=== PATIENT | male | born 1950 | race Caucasian/White ===

== ENCOUNTER → 2016-08-25 | Day surgery (SDC) | payer OTHER, MEDICARE ==
--- NOTE | 2016-08-21 11:23 | History & Physical Pre-Op ---
General Information and HPI History of Present Illness: patient presents for evaluation of gallstones. The day after he had acute onset of right upper quadrant abdominal pain. The pain persisted for 10-14 days and then slowly resolved. He has no pain now. His appetite has returned to normal. While he was in pain there was some mild anorexia. No nausea or vomiting. No radiation of pain. ultrasound performed as directed by his primary care physician reveals gallstones with wall thickening. There is no pericholecystic fluid. Common bile duct is normal Allergies/Medications Allergies: Coded Allergies: lithium (UNKNOWN 10/16/15) haloperidol (From HALDOL) (NAUSEA 10/16/15) Home Med list Carbidopa/Levodopa (Carbidopa-Levodopa 25-100 Tab) 25 MG/100 MG TAB 1 TAB PO 4 TIMES/DAY PARKINSONS (Reported) Divalproex Sodium (Depakote ER) [address] 1,500 MG PO BEDTIME MENTAL HEALTH (Reported) Finasteride 5 MG TAB 5 MG PO BEDTIME BPH (Reported) Levothyroxine Sodium (Levothyroxine) 0.088 MG TAB 0.088 MG PO DAILY AC THYROID PROBLEMS (Reported) Lorazepam 1 MG TAB 1 TAB PO AT BEDTIME ANXIETY (Reported) Naproxen (Naprosyn) 500 MG TABLET 1 TAB PO BID PAIN [id number] Ethyl Esters (Lovaza) 1 GM CAP 2 GM PO BID HIGH CHOLESTROL ( Reported) Oxycodone Hydrochloride (Oxycodone) 5 MG TAB 1 TAB PO AT BEDTIME PAIN ( Reported) Pantoprazole Sodium (Protonix) 20 MG TAB 20 MG PO DAILY PRN REFLUX (Reported) PROPRANOLOL HCL (Propranolol HCl) 20 MG TAB 20 MG PO DAILY HIGH BLOOD PRESSURE (Reported) Quetiapine Fumarate (Seroquel XR) [address] 2 TAB PO AT BEDTIME MENTAL HEALTH (Reported) Rosuvastatin Calcium (Crestor) 20 MG TAB 20 MG PO BEDTIME HIGH CHOLESTROL ( Reported) Zonisamide 25 MG CAP 3 CAP PO BID SEIZURES (Reported) Past History Medical History Neurological: meningitis (lyme), Parkinson's disease, seizure EENT: NONE Cardiovascular: hyperlipidemia Respiratory: NONE Gastrointestinal: NONE Renal: benign prost hyperplasia Musculoskeletal: osteoarthritis Psychiatric: bipolar disease Endocrine: diabetes, hypothyroidism Blood Disorders: DVT Cancer(s): NONE CARPENTER MOLD/Reproductive: NONE History of MRSA: No History of VRE: No History of CDIFF: No Surgical History Pertinent Surgical History: hip replacement Past Family/Social History Family History Relations & Conditions if any No Known Family History. Psychosocial History Services at Home Home Health Aide Primary Language: Dutch Review of Systems Review of Systems: Patient reports abdominal pain, change in appetite, and rectal bleeding but reports no vomiting, no vomiting blood, no bloating, no diarrhea, no belching, no constipation, and no regurgitation. He reports loss of balance but reports no loss of consciousness, no weakness, no numbness, no seizures, no dizziness, no fall in the past year, and no fall since last visit. He reports no fatigue, no fever, no night sweats, no significant weight gain, no significant weight loss, and no exercise intolerance. He reports no abnormal moles, no jaundice, no hives , no eczema, and no rashes. He reports no dry eyes, no irritation, no vision change, and no discharge. He reports no swollen glands and no neck stiffness. He reports no cough, no wheezing, no shortness of breath, and no coughing up blood. He reports no chest pain, no arm pain on exertion, no shortness of breath when walking, no shortness of breath when lying down, no palpitations, and no known heart murmur. He reports no incontinence, no difficulty urinating, no hematuria, and no increased frequency. He reports no muscle aches, no muscle weakness, no arthralgias/joint pain, and no back pain. Exam & Diagnostic Data Physical Exam: Patient is a 66-year-old male. Constitutional: General Appearance: healthy-appearing, well-nourished, and well- developed. Level of Distress: no acute distress. Ambulation: ambulating normally. Head: Head: normocephalic and atraumatic. Neck: Neck: supple, trachea midline, no masses, and full range of motion. Thyroid: no enlargement or nodules and non-tender. Lymph Nodes: no cervical LAD, supraclavicular LAD, axillary LAD, or inguinal LAD. Cardiovascular: Heart Auscultation: normal S1 and S2; no murmurs, rubs, or gallops; and regular rate and rhythm. Lungs: Respiratory effort: no dyspnea. Percussion: no dullness, flatness, or hyperresonance. Auscultation: no wheezing, rales/crackles, or rhonchi and breath sounds normal, good air movement, and clear to auscultation. Back: Thoracolumbar Appearance: normal curvature. Abdomen: Inspection and Palpation: no tenderness, guarding, masses, rebound tenderness, or CVA tenderness and soft and non-distended. Bowel Sounds: normal. Liver: non-tender and no hepatomegaly. Spleen: non-tender and no splenomegaly. Hernia: none palpable. Skin: Inspection and palpation: no rash, lesions, ulcer, induration, nodules, jaundice, or abnormal nevi and good turgor. Musculoskeletal:: Extremities: no cyanosis, edema, varicosities, or palpable cord. Motor Strength and Tone: normal tone and motor strength. Joints, Bones, and Muscles: no contractures, malalignment, tenderness, or bony abnormalities and normal movement of all extremities; trace edema bilateral lower extremity. Psychiatric: Insight: good judgement and insight. Mental Status: active and alert, normal mood, and abnormal affect. Orientation: to time, place, and person. Memory: recent memory normal and remote memory normal. Assessment/Plan Assessment/Plan: Cholelithiasis without obstruction - first episode of biliary colic. Recommend laparoscopic cholecystectomy. He would like to wait for surgery until after the new year. Recommend low-fat diet until then. K80.81: Other cholelithiasis with obstruction Discussion Notes Discussed outpatient laparoscopic cholecystectomy under general anesthesia. Discussed the side effects of cholecystectomy including diarrhea. Discussed the recovery period and complications including bleeding, infection, conversion to open and bile duct injury requiring reconstruction. As Ranked By This Provider Problem List: 1. Other cholelithiasis with obstruction
[~2016-08-25] VITALS: Ht 190.5 cm; Wt 101.6 kg
[~2016-08-25] MED LIST: ATIVAN0.5 MG PO; ATIVAN1 M1 PO; CARBIDOPA-LEVO1 EAC7 PO; CRESTOR20 MG PO; DEPAKOTE ER500 MG PO; DIVALPROEX SOD500 M2 PO; FINASTERIDE5 MG PO; FLOMAX(MONOGRA0.4 MG PO; FLUDROCORTISON0.1 M1 PO; FUROSEMIDE20 M1 PO; KEPPRA 500MG T500 MG PO; LEVOTHYROXIN0.088 MG PO; LOVAZA1 GM PO; MIDODRINE HCL10 M1 PO; MYSOLINE50 M1 PO; NAPROSYN500 M1 PO; NICORELIEF2 MG PO; OXYCODONE5 MG PO; PROPRANOLOL HCL20 MG PO; PROTONIX 20MG T20 MG PO; QUETIAPINE FUM100 M1 PO; QUETIAPINE FUM200 M1 PO; SEROQUEL (MONO200 MG PO; SEROQUEL 100MG100 MG PO; SEROQUEL XR300 M1 PO; SEROQUEL25 M1 PO; SINEMET 25-2501 TAB PO; SODIUM CHLORIDE1 G2 PO; ZONISAMIDE25 MG PO
--- NOTE | 2016-08-25 15:12 | Operative Report ---
Operative/Inv Procedure Report Surgery Date: 08/25/16 Name of Procedure: Laparoscopic cholecystectomy Pre-Operative Diagnosis: Biliary colic Post-Operative Diagnosis: Chronic cholecystitis Estimated Blood Loss: less than 50ml Surgeon/Belt Loop Cutter: NICOLAS CARDOZA,FELIX Flanagan/Andrew PARADA Anesthesia: general endotracheal tube Operative/Procedure Note Note: Patient brought to the operative laid supine. Gen. anesthesia was obtained and his abdomen was prepped and draped. The skin below the umbilicus was after local anesthesia a curvilinear incision made sharply. We came through subcutaneous tissues tissues bluntly and identified the fascia it was grasped with Bat[place]'s. Fasciotomies crated sharply. Stay sutures were placed and a blunt Hidalgo port was placed. Pneumoperitoneum achieved. 3, 5 mm ports were placed in the epigastrium and right upper quadrant after local anesthesia was instilled and under direct vision the camera. The gallbladder is identified it was chronically thickened and difficult to grasp due to its rubbery consistency. There were numerous filmy adhesions to the undersurface which were taken down bluntly. It was a long tapering gallbladder and the cystic duct was difficult to identify. Eventually got down to an area of what appeared to be the triangle of Calot. The artery was medial and its normal anatomic position. It was cautery to allow dissection of it away from the duct. It was circumferentially dissected. The triangle close and cleared of fatty tissue with cautery. The duct was still pretty thick but we clearly found the area where it tapered down from the infundibulum. Confirmed by opening up the gallbladder and finding the duct from the inside. At this point we doubly ligated the artery with clips. In order come across the infundibulum the epigastric port site was upsized to a 12 mm port. Through that we are able to apply 10 mm you hematologic clips. The gallbladder is removed from the fossa electrocautery. His placed in Endo Catch bag and cinched up. Right upper quadrant was and suction irrigated normal saline. He waswas adequate. Ports removed and the gallbladder delivered and passed off the field. The fascia both 12 mm port sites were closed with Vicryl suture, 0. Skin incisions closed with 4-0 Vicryl. Steri-Strips and sterile dressing applied. Sponge and needle counts are correct CC: NADEEN CARDOZA,SAMEER
== END ==
LOC: STS 01:58
DX: K80.10 Calculus of gallbladder with chronic cholecystitis without obstruction (principal); E03.9 Hypothyroidism, unspecified; E78.5 Hyperlipidemia, unspecified; R56.9 Unspecified convulsions; F17.200 Nicotine dependence, unspecified, uncomplicated
CPT/HCPCS: 88304; J0131; J0690; J2250

== ENCOUNTER 2016-11-12 20:15 | Inpatient (IN) | payer OTHER, MEDICARE ==
[~2016-11-12] VITALS: Ht 182.9 cm; Wt 99.9 kg
[~2016-11-12 20:15] MED LIST changes: -DIVALPROEX SOD500 M2 PO; -FUROSEMIDE20 M1 PO; -NICORELIEF2 MG PO; -QUETIAPINE FUM100 M1 PO; -QUETIAPINE FUM200 M1 PO
--- NOTE | 2016-11-12 20:18 | NUR ---
PT PBA FOR MAKING HI STATEMENT TOWARDS HOME HEALTH WORKER. PT CURRENTLY DENIES SI OR HI. PT ON PEER THROUGH JULIANA MACEDO. ON ARRIVAL, PT ROBERTO ALDRICH COOPERATIVE, AMBULATORY TO ROOM 13. SECURITY CALLED FOR WANDING
--- NOTE | 2016-11-12 20:23 | ED PSYCHIATRIC COMPLAINT ---
History of Present Illness General Chief Complaint: Psychiatric Related Complaint Stated Complaint: +HI Source: patient Exam Limitations: no limitations Vital Signs & Intake/Output Vital Signs & Intake/Output Vital Signs Date Time Temp Pulse Resp B/P Pulse O2 O2 Flow FiO2 Ox Delivery Rate 11/13 1943 98.5 85 128/76 04/ 1602 98.1 81 151/82 04/ 1349 90 16 160/80 96 Room Air 04/ 1200 96.9 85 16 159/80 97 Room Air 11/13 0717 96.3 82 20 126/73 96 Room Air 11/13 0603 96.5 68 18 123/68 95 Room Air 11/13 0021 98.7 76 20 154/89 96 Room Air 11/12 2219 Room Air Allergies Coded Allergies: lithium (UNKNOWN 10/16/15) haloperidol (From HALDOL) (NAUSEA 10/16/15) Reconcile Medications Carbidopa/Levodopa (Carbidopa-Levodopa 25-100 Tab) 25 MG-100 MG TABLET 1 TAB PO TID PARKINSONS (Reported) Divalproex Sodium (Depakote ER) [address] 1,500 MG PO BEDTIME MENTAL HEALTH (Reported) Finasteride 5 MG TAB 5 MG PO BEDTIME BPH (Reported) Fludrocortisone Acetate 0.1 MG TABLET 1 TAB PO DAILY BP (Reported) Levothyroxine Sodium (Levothyroxine) 0.088 MG TAB 0.088 MG PO DAILY AC THYROID PROBLEMS (Reported) Lorazepam 1 MG TAB 1 TAB PO AT BEDTIME ANXIETY (Reported) Midodrine HCl 10 MG TABLET 1 TAB PO TID BP (Reported) Pantoprazole Sodium (Protonix) 20 MG TAB 20 MG PO DAILY PRN REFLUX (Reported) Primidone (Mysoline) 50 MG TABLET 100 MG PO BID UNKNOWN (Reported) Quetiapine Fumarate (Seroquel XR) (Unknown Strength) TAB.ER.24H 600 MG PO QHS MENTAL HEALTH (Reported) Quetiapine Fumarate (Seroquel) 25 MG TABLET 1 TAB PO TID MENTAL HEALTH ( Reported) Rosuvastatin Calcium (Crestor) 20 MG TAB 20 MG PO BEDTIME HIGH CHOLESTROL ( Reported) Sodium Chloride 1 GRAM TABLET 0.5 TAB PO AD UNKNOWN (Reported) Triage Note: PT BIBA FOR MAKING HI COMMENTS TOWARDS HOME HEALTH WORKER. PT IS ON PEER. PT DENIES ETOH OR DRUG USE TODAY. Triage Nurses Notes Reviewed? yes Onset: Abrupt Duration: hour(s): Timing: single episode today Severity: moderate Associated Symptoms: anxiety, HI HPI: 66 yo gentleman h/o bipolar disorder presents with an episode of homicidal ideation. Per the police, "He had an argument with his button tacker. He was aggressive. He said that he was going to kill her." Per the patient, "My psychiatrist wants to go up on the seroquel from 75 to 300mg. I don't want to be too drugged up.... I got into an argument with my button tacker because she kept on bugging me about my meds... I told her that 'IF you don't stop, I am going to kill you.' But I didn't really mean it." He notes that he drank one beer earlier this afternoon, but denies other alcohol or drugs. He notes that he has been compliant with his medications. (ALKA CARDOZA,JYOTI Moody) Past History Medical History Any Pertinent Medical History? see below for history Neurological: meningitis (lyme), Parkinson's disease, seizure EENT: NONE Cardiovascular: hyperlipidemia Respiratory: NONE Gastrointestinal: NONE Renal: benign prost hyperplasia Musculoskeletal: osteoarthritis Psychiatric: bipolar disease Endocrine: diabetes, hypothyroidism Blood Disorders: DVT Cancer(s): NONE [employer]/Reproductive: NONE History of MRSA: No History of VRE: No History of CDIFF: No Surgical History Surgical History: hip replacement Psychosocial History Who do you live with Patient/Self Services at Home Home Health Aide What is your primary language Luxembourgish Family History Family History, If Any: No Known Family History. Hx Contributory? No (JYOTI OLSEN MD) Review of Systems Review of Systems Constitutional: Reports: no symptoms. EENTM: Reports: no symptoms. Respiratory: Reports: no symptoms. Cardiovascular: Reports: no symptoms. GI: Reports: no symptoms. Genitourinary: Reports: no symptoms. Musculoskeletal: Reports: no symptoms. Skin: Reports: no symptoms. Neurological/Psychological: Reports: no symptoms. Hematologic/Endocrine: Reports: no symptoms. Immunologic/Allergic: Reports: no symptoms. All Other Systems: Reviewed and Negative (JYOTI OLSEN MD) Physical Exam Physical Exam General Appearance: well developed/nourished, mild distress Head: atraumatic Eyes: Bilateral: normal appearance, PERRL, EOMI. Ears, Nose, Throat: normal pharynx, normal ENT inspection, hearing grossly normal Neck: normal inspection, supple Respiratory: normal breath sounds Cardiovascular: regular rate/rhythm Gastrointestinal: soft, non-tender Extremities: normal range of motion Neurological/Psychiatric: awake, anxious, oriented x 3 Appearance/Memory/Insight: disheveled, impaired insight Behavoir/Eye Contact/Speech: cooperative, increased rate of speech, slightly pressured speech Thoughts/Hallucinations: no apparent hallucination Skin: intact, normal color, warm/dry SAD PERSONS SAD PERSONS Response Value Male Sex? yes 1 Age <19 or >45 years? yes 1 Depression/Hopelessness? yes 2 Single//? yes 1 Social Support? has support 0 Total 5 SAD PERSONS Done? yes, patient not suicidal (ALKA CARDOZA,JYOTI Moody) Progress Differential Diagnosis: drug intoxication, electrolyte abnormality, bipolar vs other. Plan of Care: Orders Procedure Date/time Status Regular Diet 11/13 D Active Regular Diet 11/13 B Complete Vital Signs 11/13 1422 Active Inpt Psych Teach/Educate 11/13 1422 Active Nutritional Intake, Monitor 11/13 1422 Active Inpt Psych Auricular Acupunctu 11/13 1422 Active Continuous Observation Monitor 11/13 1258 Complete Patient Data - inpatient psych 11/13 1111 Active Admit to inpatient psych 11/13 1111 Active Continuous Observation Monitor 11/13 0959 Complete Continuous Observation Monitor 11/13 0952 Complete Vital Signs 11/13 UNK Complete Nursing Misc 11/13 UNK Active Activity/Ambulation 11/13 UNK Complete DEPAKOTE LEVEL 11/12 2113 Complete Intake & Output 11/12 2045 Complete Current Medications Sig/Haydee Start time Last Medication Dose Stop Time Status Admin Fludrocortisone 100 MCG DAILY 11/14 1000 AC Acetate (Florinef 100 Mcg Tab) Levothyroxine Sodium 0.088 MG DAILY AC 11/14 0700 AC (Synthroid) Divalproex Sodium 1,500 MG AT BEDTIME 11/13 2199 AC (Depakote ER) Finasteride 5 MG AT BEDTIME 11/13 2199 AC (Proscar) Lorazepam 1 MG AT BEDTIME 11/13 2199 AC (Ativan) Magnesium Hydroxide 30 ML AT BEDTIME PRN 11/13 2199 AC (Milk Of Magnesia) Patient Medication 1 UNIT 11/13 AC Teaching 11/13 2200 (ANXIOLYTIC EDUCATION) Primidone 100 MG BID 11/13 2199 AC (Mysoline 50MG. Tablet) Quetiapine Fumarate 400 MG AT BEDTIME 11/13 2199 AC (Seroquel) Lorazepam 1 MG Q6-PRN PRN 11/13 184 AC (Ativan) Acetaminophen 650 MG Q4P PRN 11/13 164 AC (Tylenol) Al Hydroxide/Mg 30 ML Q6-PRN PRN 11/13 164 AC Hydroxide (Maalox Plus) Nicotine 2 MG Q2 HRS NEEDED PRN 11/13 164 AC (Nicotine) Laboratory Tests 11/12/162119: Urine Opiates Screen < 100.00, Methadone Screen 59, Barbiturate Screen 637 H, Ur Phencyclidine Scrn < 6.00, Amphetamines Screen 201, U Benzodiazepines Scrn < 85, Urine Cocaine Screen < 50, Urine Cannabis Screen 78.40 H 11/12/162112: Anion Gap 9, Estimated GFR > 60, BUN/Creatinine Ratio 21.8, Glucose 101 H, Calcium 9.5, Total Bilirubin 0.6, AST 39, ALT 24, Alkaline Phosphatase 63, Total Protein 6.7, Albumin 3.6, Globulin 3.1, Albumin/Globulin Ratio 1.2, CBC w Diff NO MAN DIFF REQ, RBC 4.10 L, MCV 101.6 H, MCH 34.2 H, RDW 15.2 H, MPV 9.9, Gran % 55.3, Lymphocytes % 29.0, Monocytes % 14.1 H, Eosinophils % 1.0, Basophils % 0.6, Absolute Granulocytes 2.9, Absolute Lymphocytes 1.5, Absolute Monocytes 0.7 H, Absolute Eosinophils 0.1, Absolute Basophils 0, PUBS MCHC 33.7 , Valproic Acid 66.9, Serum Alcohol < 10.0 Hand-Off Endorsed To: NIELS MARTINEZ DO Endorsed Time: 0700 Pending: consult (ALKA CARDOZA,JYOTI Moody) Departure Departure Disposition: HOME OR SELF CARE Condition: Stable Clinical Impression Primary Impression: Bipolar disorder Referrals: JENS PAYTON MD (PCP/Family) Departure Forms: Customer Survey General Discharge Information (ALKA CARDOZA,JYOTI Moody) Departure Comments 11/13/16 The patient was admitted to Inpatient Psychiatry. He was signed out to me by Dr. Olsen at 7 AM. (NIELS MARTINEZ DO)
--- NOTE | 2016-11-12 20:24 | NUR ---
DR RUCKER AT BEDSIDE
--- NOTE | 2016-11-12 20:40 | NUR ---
THIS RN INTERVIEWED PT WHO STATES HE HAD AN ARGUMENT WITH HIS HEALTH CARE WORKER YESTERDAY, AND STATES THAT THE ARGUMENT CONTINUED TODAY AND HE STATED TO HER "I WILL KILL YOU IF YOU DON'T STOP". PT STATES THAT HE DIDN'T MEAN IT AND THAT HE HAS NO PLANS TO FOLLOW THROUGH WITH THE PLAN. PT IS HYPERVERBAL DURING INTERVIEW.
--- NOTE | 2016-11-12 20:45 | NUR ---
SECURITY AT BEDSIDE FOR WANDING
--- NOTE | 2016-11-12 21:02 | NUR ---
Crisis spoke to patient's son, Mirza. Please keep him informed when a disposition is made. He can be reached at [phone].
--- NOTE | 2016-11-12 21:03 | NUR ---
PT MEDICATED WITH ATIVAN 1MG PO FOR ANXIETY PER EMAR
--- NOTE | 2016-11-12 21:16 | NUR ---
LABS DRAWN AND SENT (SST,LAV)
--- NOTE | 2016-11-12 21:21 | NUR ---
PT PROVIDED WITH ICE WATER TO AID IN PT GIVING URINE SAMPLE
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
--- NOTE | 2016-11-12 21:29 | ED PSY CRISIS COLLATERAL NOTE ---
Collateral Note Collateral Note Family/Inform/Chiara Contacts: Crisis spoke to re examiner, Sabrina- [phone]. Sabrina has been working with pt for 3.5 years. She reports he has a manic episode approximately 1x year. She reports it's normally around the holidays. Sabrina reports patient's manic symptoms include: drinking beer, drinking 6-7 redbulls per day, swearing/ shouting at his neighbors, blasting the tv and radio at the same time, pacing in the apartment, spending a lot of money (went to a house that was for sale and tried to buy it), hanging out with younger people in the apartment complex that use drugs, and going out to walk at night. Sabrina also reported patient has hypotension and Parkinson's disease. At times, she reports, patient struggles to walk on his own. She reported takes his evenings meds at 10 pm. This information was shared with ARNOLD Ford.
--- NOTE | 2016-11-12 21:32 | NUR ---
PT HAS 1 BELONGINGS BAG LOCKED IN CLOSET AND 1 VALUABLES BAG LOCKED IN MED ROOM SAFE.
--- NOTE | 2016-11-12 21:32 | NUR ---
URINE SPECIMEN OBTAINED AND TRIO SENT TO LAB
[2016-11-12 21:40] LABS: ABSOLUTE BASOPHIL COUNT 0 /CUMM (0.0-0.2); ABSOLUTE EOSINOPHIL COUNT 0.1 /CUMM (0.0-0.7); ABSOLUTE GRANULOCYTE CT 2.9 /CUMM (1.4-6.5); ABSOLUTE LYMPH COUNT 1.5 /CUMM (1.2-3.4); ABSOLUTE MONOCYTE COUNT 0.7 /CUMM (0.10-0.60); BASOPHIL % 0.6 % (0.0-2.0); GRANULOCYTE % 55.3 % (42.2-75.2); HEMATOCRIT 41.7 % (42-52); MEAN CORPUSCULAR HGB 34.2 PG (27.0-31.0); MEAN CORPUSCULAR HGB CONC 33.7 G/DL (33.0-37.0); MEAN CORPUSCULAR VOLUME 101.6 FL (80.0-94.0); MEAN PLATELET VOLUME 9.9 FL (7.4-10.4); PLATELET COUNT 194 /CUMM (130-400); RBC DISTRIBUTION WIDTH 15.2 % (11.5-14.5); WHITE BLOOD CELL COUNT 5.2 /CUMM (4.8-10.8)
--- NOTE | 2016-11-12 21:48 | NUR ---
1 BAD OF MEDS TO PHARMACY
--- NOTE | 2016-11-12 22:03 | NUR ---
SECURITY TO BEDSIDE AT THIS TIME. PT IS YELLING AND ASKING WHO IS GOING TO ENFORCE THAT HE HAS TO STAY IN THIS ROOM. PT VERBALLY DEESCALATED AT THIS TIME, NURSING WILL CONTINUE TO MONITOR.
--- NOTE | 2016-11-12 22:30 | NUR ---
PT ASLEEP AT THIS TIME ON BED IN ROOM 13. SITTER AT DOOR FOR SAFETY.
--- NOTE | 2016-11-13 00:22 | NUR ---
REPORT RECIEVED AND CARE OF PT ASSUMED. REQUESTING HOME MED LIST. PT'S PHARMACY ([facility]) CLOSED UNTIL 829. MOST RECENT MED RECONCILIATION DONE 08/24/16 PRIOR TO PT'S SURGERY HERE. LIST REVIEWED WITH PT WHO CONFIRMED ALL MEDS EXCEPT "THE ONES TO RAISE MY BLOOD PRESSURE, BECAUSE IT'S HIGH ENOUGH ANYWAY." MED LIST CORRELATES WITH RECENTLY FILLED PRESCRIPTIONS. DR RUCKER AWARE OF MED LIST, RECENTLY FILLED PRESCRIPTIONS AND THAT PT IS ONLY FAIR HISTORIAN. WILL ORDER ALL MEDS HE FINDS APPROPRIATE/NECESSARY. PT SLEEPING, EASILY AROUSABLE, PRESSURED SPEECH, NO AGGRESSIVE/THREATENING SPEECH OR BEHAVIOR. PT ASKING WHEN HE CAN LEAVE, SOMEWHAT AGITATED WHEN INFORMED HE IS AWAITING CRISIS EVAL IN AM BUT DID CALM DOWN QUICKLY AND ULTIMATELY WAS AGREEABLE. NO PHYSICAL COMPLAINTS VOICED. SITTER IN ATTENDANCE.
--- NOTE | 2016-11-13 00:32 | NUR ---
PHARMACY CALLED REGARDING MEDS, NO ANSWER, WILL CALL AGAIN. PT CURRENTLY SLEEPING.
--- NOTE | 2016-11-13 01:19 | NUR ---
D/W DR RUCKER, PT IS CURRENTLY SLEEPING SOUNDLY (SNORING), PER MD PT DOES NOT NEED NIGHTTIME MEDS.
--- NOTE | 2016-11-13 02:33 | NUR ---
PT HAS BEEN SLEEPING IN ROOM, [facility], SITTER IN ATTENDANCE. AWAITING CRISIS EVAL IN AM.
--- NOTE | 2016-11-13 03:33 | NUR ---
PATIENT ASLEEP AT THIS TIME W/ REGULAR RESPIRATIONS NOTED. SITTER REMAINS AT DOORWAY. LIGHTS DIMMED.
--- NOTE | 2016-11-13 04:46 | NUR ---
PATIENT CONTINUES TO SLEEP AT THIS TIME W/ REGULAR RESPIRATIONS NOTED. SITTER REMAINS W/ PATIENT.
--- NOTE | 2016-11-13 06:06 | NUR ---
AWOKE PATIENT TO OBTAIN AM VS, PATIENT CALM AND COOPERATIVE W/ STAFF. LIGHTS DIMMED. VSS. PATIENT AWAITING CRISIS EVAL THIS AM. SITTER REMAINS W/ PATIENT.
--- NOTE | 2016-11-13 07:24 | NUR ---
ASSUMED CARE OF PT AT THIS TIME. PT SITTING ON STRETCHER, OFFERS NO COMPLAINTS AT THIS TIME. PT MEDICATED PER EMAR AT THIS TIME. SITTER REMAINS PRESENT.
--- NOTE | 2016-11-13 10:06 | NUR ---
[facility] CALLED FOR MEDS
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
--- NOTE | 2016-11-13 10:37 | NUR ---
PLAN IS FOR ADMISSION TO [facility]. PT AGEEABLE TO PLAN. Informed waiting has been performed.
--- NOTE | 2016-11-13 10:39 | NUR ---
PT MEDICATED PER EMAR AT THIS TIME.
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
--- NOTE | 2016-11-13 12:00 | NUR ---
PT STANDING IN DOORWAY OF ROOM. AVSS. SITTERS WITHIN DIRECT VIEW
--- NOTE | 2016-11-13 12:18 | NUR ---
PT MEDICATED PER EMAR AT THIS TIME.
--- NOTE | 2016-11-13 13:38 | NUR ---
REPORT GIVEN TO [facility]. DISTRIBUTION CALLED FOR TRANSPORT.
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
--- NOTE | 2016-11-13 14:12 | NUR ---
PT TO [facility] VIA W/C WITH TRANSPORT AND SECURITY. CLINICAL STATUS UNCHANGED.
--- NOTE | 2016-11-13 15:24 | NUR ---
Admission Note: patient presents as hyperverbal, tangential, loose associations, grandiose. Patient reports making a homicidal statement in the context of being told her was manic. Patient stated he would never hurt anyone. Patient denies SI. Cooperative with intake. High fall risk. Patient has early stages of Parkinson's disease with mild tremor, gait steady. med compliance. denies recent stressors.
[2016-11-13 16:02] VITALS: BP 151/82
[2016-11-13 19:43] VITALS: BP 128/76
--- NOTE | 2016-11-13 22:22 | NUR ---
Pt is all over the place intrusive and has poor boudaries during the glenn shift. Pt needs to be redirected most of the time. Pt vital signs are stable c/o no pain, appetite is good. Will continue to monitor the pt overnight.
--- NOTE | 2016-11-14 01:27 | RADIOLOGY REPORT ---
EXAMINATION: XR HIP, LEFT CLINICAL INFORMATION: Left hip pain. Status post replacement. Trauma. COMPARISON: None TECHNIQUE: Two views of the left hip. FINDINGS: Status post left total hip replacement. Orthopedic components in good position. No fracture or dislocation. Heterotopic bone seen superior to left greater tuberosity of the hip. IMPRESSION: Status post left total hip replacement. No acute change.
--- NOTE | 2016-11-14 05:58 | NUR ---
SLEPT WELL OVERNIGHT, NO COMPLAINTS OFFERED
[2016-11-14 08:21] VITALS: BP 123/63
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
--- NOTE | 2016-11-14 12:02 | SOCIAL WORKER TX PLAN PSYCH ---
ROSALBAJUDDLIANG 11/14/16 1202: Treatment Plan - Please Document: - Evidence that there is ongoing collaboration between - the patient and the interdisciplinary team, - including the patient's active participation and - responsibility for engaging in the treatment regimen, - and that the treatment plan is individualized and - relevant to the patient's conditions. - Treatment plan should reflect documentation indicating - that all active therapeutic efforts are included. Strengths/Capabilities: Good support system, recent questionable med compliant Physical Limitations (Interventions): None known DSM5/PS Stressors/Medical Prob Diagnosis' (DSM 5, Stressors, Medical): F31.13 Bipolar I severe Current GAF: 21 Treatment Team - Responsibilities of members of the treatment team include: - Medication Management- MD or STEMMING MACHINE OPERATOR - Medication Administration and Monitoring- Nurse - Group Therapy- Occupational Therapist - 1:1 Therapy,Disch Planning,family involvement-Manager Industrial SONNY GARRETT LCSW 11/14/16 1205: Treatment Plan - Please Document: - Evidence that there is ongoing collaboration between - the patient and the interdisciplinary team, - including the patient's active participation and - responsibility for engaging in the treatment regimen, - and that the treatment plan is individualized and - relevant to the patient's conditions. - Treatment plan should reflect documentation indicating - that all active therapeutic efforts are included. DSM5/PS Stressors/Medical Prob Treatment Team - Responsibilities of members of the treatment team include: - Medication Management- MD or STEMMING MACHINE OPERATOR - Medication Administration and Monitoring- Nurse - Group Therapy- Occupational Therapist - 1:1 Therapy,Disch Planning,family involvement-Manager Industrial
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
[2016-11-14 12:29] VITALS: BP 143/75
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
--- NOTE | 2016-11-14 13:41 | NUR ---
PT WAS CALMER IN THE AFTERNOON AND EASIER TO REDIRECT. HE IS ALERT AND ORIENTED AND DENIED THOUGHTS OF SUICIDE OR SELF HARM
--- NOTE | 2016-11-14 15:27 | SOCIAL WORKER TX PLAN PSYCH ---
Treatment Plan - Please Document: - Evidence that there is ongoing collaboration between - the patient and the interdisciplinary team, - including the patient's active participation and - responsibility for engaging in the treatment regimen, - and that the treatment plan is individualized and - relevant to the patient's conditions. - Treatment plan should reflect documentation indicating - that all active therapeutic efforts are included. Strengths/Capabilities: Good support system, recent questionable med compliant Physical Limitations (Interventions): None known Patient Identified Trmt Goals: "I want to go home" Discharge Plan: Follow up with [facility] and return home. Problem/Goals #1 Problem #1: fidel Goal (Short Term): Patient will explore and make medication adjustments to stabilize symptoms of manic behavior Goal (Retirement): patient will be able to safely return home to everyday activities as evidenced by behavior on unit. Interventions: patient will be offered medication managment with the FOSTER WINDER, patient will be offered groups on symptom management, coping skills, focus group, relaxation, accupuncture, goals group. Sand Conditioner will assess behavior and thoughts daily, discuss and give feedback on personal interactions and hold family meeting. farmworker fur will assist with aftercare planning DSM5/PS Stressors/Medical Prob Diagnosis' (DSM 5, Stressors, Medical): F31.13 Bipolar I severe Current GAF: 21 Treatment Team - Responsibilities of members of the treatment team include: - Medication Management- MD or FOSTER WINDER - Medication Administration and Monitoring- Nurse - Group Therapy- Occupational Therapist - 1:1 Therapy,Disch Planning,family involvement-Sand Conditioner
[2016-11-14 16:01] VITALS: BP 145/81
[2016-11-14 20:02] VITALS: BP 134/77
--- NOTE | 2016-11-14 21:36 | NUR ---
PT IS HAVING DIFFICULTIES STAYING COMPLIANT WITH UNIT RULES. PT NEEDED TO BE TOLD MULTIPLE TIMES TO FOLLOW UNIT RULES, NOT ACTING COOPERATIVELY WITH STAFF. MOOD IS STABLE, AFFECT IS BRIGHT, COMMUNICATION IS ORGANIZED, BUT HYPERVERBAL, LOUD, AND PRESSURED TO AN EXTENT, AND APPETITE IS NORMAL. PT DENIES SI AT THIS TIME.
--- NOTE | 2016-11-15 06:08 | NUR ---
PT HYPOMANIC, POOR BOUNDARIES, SOMEWHAT DISORGANIZED. PT URINATED IN GARBAGE PAIL NOW IN SOILED UTILITY. PT UP FROM [phone].
[2016-11-15 07:40] VITALS: BP 101/68
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
--- NOTE | 2016-11-15 12:04 | SOCIAL WORKER PROG NOTE PSYCH ---
Social Work Progress Note Progress Note Mando Busby APRN and I met with Israel. He had difficulty remembering some things he shared yesterday about his marijuana smoking. He went into this long story about how he arranges to purchase the marijuana for people in his building , but he has to wait for it to be arranged and delivered. Initially he said today that he doesn't smoke marijuana daily, but then he said that depending on how much is purchased he may smoke a little every day. Asked about his consumption of Red Bull, due to reports from family and nursing staff that he may be consuming these regularly. He said he tried it once and that he thought it was beer. He said he was informed of the amount of caffeine it contained and that he was not doing that anymore. We talked about our recommendations for him to stay through the weekend. He did not seem to agree and said he wanted to leave today. He was informed that we were not ready for him to discharge today or tomorrow. Explained the process of involving probate court if he decides not to revoke his 3 day paper. He chose to revoke the 3 day and work with us on a discharge plan. Meeting with family set for 3:45 today. Israel's family (2 son's and daughter) came in for the meeting. Mando Busby APRN was also in attendance. Israel is continuing to talk about wanting to leave. He seemed confused about the conversation that we had this morning about his staying through the weekend and evaluating on Sunday. His family informed him that they did not feel he was in any condition at this point to leave the hospital. Family reviewed some history over the past several years of how Israel has been from placement to placement including being hospitalized at [facility] and being in various medical facilities due to his manic behavior. They are concerned that he is making poor decisions with money and right now is having thoughts about not needing his psychiatric medication. He states he feels "perfect", like "superman". He doesn't see anything wrong with his use of marijuana and who he is associating with right now. Tried to get him to see that we don't feel he is safe to leave right now and that we don't want to see him get into problems with his housing or police. He doesn't have the insight right now to see these things. We again explained his rights and that he can sign another 3 day paper to terminate voluntary status if he chooses. After meeting all together, Mando and Anna also talked to his sons for a few minutes. They were informed that Mando and Anna would not be here starting next week and that there will be staff covering who will be informed of the situation. They indicated that they have arranged for VNS to come 2x's daily when he leaves the hospital.
[2016-11-15 12:09] VITALS: BP 109/62
--- NOTE | 2016-11-15 13:19 | NUR ---
IN THE MORNING PT HAD POOR BOUNDARIES WITH PRESSURED SPEECH.PT DID ATTEND FOCUS GROUP AND WAS REDIRECTABLE FOR THE MOST PART.HE DENIES THOUGHTS OF SUICIDE OR SELF HARM AT THIS TIME. HE IS COMPLIANT WITH HIS MED REGIME. PT RECEIVED PRN ATIVAN WITH GOOD EFFECT
[2016-11-15 15:49] VITALS: BP 128/78
[2016-11-15 19:39] VITALS: BP 128/65
--- NOTE | 2016-11-15 20:41 | NUR ---
PT IS VISIBLE ON UNIT, WATCHING TV AND SOCIALIZING IN KITCHEN. PT APPEARS TO BE RESPONDING WELL TO REDIRECTION AND LIMIT SETTING. AFFECT IS BRIGHT BUT MOOD IS STABLE. COOPERATIVE AND COMPLIANT WITH STAFF. NO COMPLAINTS OR SI REPORTED.
--- NOTE | 2016-11-16 06:20 | NUR ---
PT UP FROM 0200- 0500 QUIETLY READING IN THE LOUNGE. PATIENT LESS CONFUSED AND DISORGANIZED, STILL HYPOMANIC.
[2016-11-16 07:44] VITALS: BP 119/76
[2016-11-16 12:10] VITALS: BP 144/68
--- NOTE | 2016-11-16 13:53 | NUR ---
PT VISIBLE IN THE [place] TODAY. HIS GOAL WAS TO BE ACTIVE IN THE [place]IEU. PT HAS BEEN DOING JUST THAT AND COMING TO GROUPS THROUGHOUT THE DAY. HE HAS SOME INTERACTIONS WITH PEERS, BUT NEEDS TO BE REMINDED AT TIMES TO BE APPROPRIATE AND MAINTAIN GOOD BOUNDARIES. PT DENIES THOUGHTS OF HURTING SELF WHEN ASKED.
--- NOTE | 2016-11-16 16:01 | SOCIAL WORKER PROG NOTE PSYCH ---
Social Work Progress Note Progress Note Israel has been up and social today and in groups. Reports that he is getting along with all and that he feels good. He shaved his mustache today and looks well groomed. Smiling, cracking jokes, somewhat flirtatious. He is inagreement to stay through the weekend. Talked about having a nice visit with family last night and planning to see his son Thor today. He made casual conversation about wanting computers and wanting to learn how to type faster. Reminded him that I will not be here next week and that tomorrow will be our last meeting together. He signed a release for his assistant real estate manager Sabrina Isabel. He is in agreement for me to reach out to her.
--- NOTE | 2016-11-16 16:09 | CP SOUTH PROGRESS NOTE PSYCH ---
Psych (Inpt) Progress Note Progress Note Progress Note: I discussed this patient's progress to date, current mental status, treatment process in the context of the treatment plan, and discharge planning with staff/ team in the daily morning inpatient team meeting. I also met with the patient myself in individual session. A total of 15 minutes was spent with the patient with more than 50% spent in counseling and/or coordination of care. SUBJECTIVE: "I feel like superman, but I can't fly." OBJECTIVE: Current Medications Sig/Haydee Start time Last Medication Dose Route Stop Time Status Admin Acetaminophen 650 MG Q4P PRN 11/13 1645 AC 11/14 PO 0812 Al Hydroxide/Mg 30 ML Q6-PRN PRN 11/13 1645 AC Hydroxide PO Carbidopa/Levodopa 1 TAB TID 11/13 1600 AC 11/16 PO 1603 Divalproex Sodium 500 MG 0800 11/15 0915 11/16 PO 0753 Divalproex Sodium 1,500 MG AT BEDTIME 11/13 2200 AC 11/15 PO 2145 Finasteride 5 MG AT BEDTIME 11/13 2200 11/15 PO 2145 Fludrocortisone 100 MCG DAILY 11/14 1000 AC 11/16 Acetate PO 0754 Levothyroxine Sodium 0.088 MG DAILY AC 11/14 0700 AC 11/16 PO 0709 Lorazepam 1 MG AT BEDTIME 11/13 2200 AC 11/15 PO 2146 Lorazepam 1 MG Q6-PRN PRN 11/13 1845 AC 11/16 PO 1226 Magnesium Hydroxide 30 ML AT BEDTIME PRN 11/13 2200 AC PO Midodrine 10 MG 0800,1200,1600 11/13 1200 11/16 PO 1603 Nicotine 2 MG Q2 HRS NEEDED PRN 11/13 1645 AC PO Omeprazole 20 MG DAILY AC 11/13 0700 AC 11/16 PO 0709 Primidone 100 MG BID 11/13 2200 AC 11/16 PO 0754 Quetiapine Fumarate 600 MG 11/15 11/15 PO 1955 Quetiapine Fumarate 50 MG 0800,1300,1700 11/15 1300 11/16 PO 1603 Vital Signs Date Time Temp Pulse Resp B/P Pulse O2 O2 Flow FiO2 Ox Delivery Rate 11/16 1210 87 144/68 11/16 0744 97.8 94 119/76 11/15 1938 97.8 78 128/65 ASSESSMENT: Today met the patient along with social security assessor Liliana Flores LCSW. Patient presents in a pleasant, ebullient mood, somewhat hypomanic, but more calm than yesterday. Offers no complaints, states he is doing well. Tolerating his medications well. Looking forward to a visit from his children today. Depression:0/10; Anxiety:0/10 (with 10 the worst.) Denies suicidal ideation, homicidal ideation, auditory hallucinations, visual hallucinations, paranoid ideation. Speech is well articulated, goal-directed, average in rate, volume and tone. Cooperative and pleasant. Alert and oriented 3. Somewhat forgetful. The patient understands the risks/benefits/side effects of the medication and is agreeable to continue taking them. PLAN: Depakote level tomorrow morning. Continue with current management as patient is improving. Continue to provide support and encouragement.
[2016-11-16 16:17] VITALS: BP 146/71
[2016-11-16 19:39] VITALS: BP 133/77
--- NOTE | 2016-11-16 22:12 | NUR ---
PT IS VISIBLE ON UNIT, SOCIALIZING WITH PEERS AND SPENDING TIME WITH A VISITOR. COOPERATIVE AND COMPLIANT WITH STAFF. ATTENDED WRAP UP MEETING. NO COMPLAINTS OR SI REPORTED. MINIMAL REDIRECTION NEEDED WHEN INTERACTING WITH OTHERS. PT HAS A STABLE MOOD AND FULL RANGE AFFECT.
[2016-11-17 07:48] VITALS: BP 133/88
[2016-11-17 12:06] VITALS: BP 105/65
--- NOTE | 2016-11-17 13:27 | CP SOUTH PROGRESS NOTE PSYCH ---
Psych (Inpt) Progress Note Progress Note Progress Note: I discussed this patient's progress to date, current mental status, treatment process in the context of the treatment plan, and discharge planning with staff/ team in the daily morning inpatient team meeting. I also met with the patient myself in individual session. A total of 25 minutes was spent with the patient with more than 50% spent in counseling and/or coordination of care. SUBJECTIVE: "I feel perfect. Just quite fine." OBJECTIVE: Current Medications Sig/Haydee Start time Last Medication Dose Route Stop Time Status Admin Acetaminophen 650 MG Q4P PRN 11/13 1645 AC 11/14 PO 0812 Al Hydroxide/Mg 30 ML Q6-PRN PRN 11/13 1645 AC Hydroxide PO Carbidopa/Levodopa 1 TAB TID 11/13 1600 AC 11/17 PO 0759 Divalproex Sodium 1,000 MG 0800 11/18 0800 AC PO Divalproex Sodium 500 MG ONCE ONE 11/17 1030 DC 11/17 PO 11/17 1031 1257 Divalproex Sodium 500 MG 0811/15 0915 DC 11/17 PO 0959 Divalproex Sodium 1,500 MG AT BEDTIME 11/13 2200 AC 11/16 PO 2152 Finasteride 5 MG AT BEDTIME 11/13 2200 AC 11/16 PO 2153 Fludrocortisone 100 MCG DAILY 11/14 1000 AC 11/17 Acetate PO 0759 Levothyroxine Sodium 0.088 MG DAILY AC 11/14 0700 AC 11/17 PO 0621 Lorazepam 1 MG AT BEDTIME 11/13 2200 AC 11/16 PO 2152 Lorazepam 1 MG Q6-PRN PRN 11/13 1845 AC 11/16 PO 1226 Magnesium Hydroxide 30 ML AT BEDTIME PRN 11/13 2200 AC PO Midodrine 10 MG 0800,1200,1600 11/13 1200 AC 11/17 PO 1257 Nicotine 2 MG Q2 HRS NEEDED PRN 11/13 1645 AC PO Omeprazole 20 MG DAILY AC 11/13 0700 AC 11/17 PO 0621 Primidone 100 MG BID 11/13 2200 AC 11/17 PO 0759 Quetiapine Fumarate 600 MG 11/15 AC 11/16 PO 2006 Quetiapine Fumarate 50 MG 0800,1300,1700 11/15 1300 AC 11/17 PO 1257 Laboratory Tests 11/17 621 Toxicology Valproic Acid (50 - 120 ug/mL) 58.9 Vital Signs Date Time Temp Pulse Resp B/P Pulse O2 O2 Flow FiO2 Ox Delivery Rate 11/17 1206 97 105/65 11/17 0748 97.1 86 133/88 11/16 1939 98.4 87 133/77 11/16 1617 86 146/71 ASSESSMENT: Patient presents in an upbeat mood, hyperverbal. Continues to act in a hypomanic/manic manner. He is however polite and cooperative. We discussed his Depakote level, and he has agreed to an increase in his Depakote dose. He is very focused on discharging on Sunday, and following up with Dr. Leal at [facility] on an outpatient basis. Excited at the prospect of his children coming to visit again. Depression:0/10; Anxiety:0/10 (with 10 the worst.) Denies suicidal ideation, homicidal ideation, auditory hallucinations, visual hallucinations, paranoid ideation. Speech is well articulated, goal-directed, average in rate, volume and tone. Hyperverbal. Reports that he "slept like a log." His appetite is very good. We discussed Depakote and weight control, patient verbalized understanding that he may gain weight while taking Depakote, states that he likes to exercise and eat healthfully. The patient understands the risks/benefits/side effects of the medication and is agreeable to continue taking them. PLAN: Increase Depakote to 1000 mg in the morning and 1500 mg at night. Repeat Depakote level on Sunday. Continue with current management as patient is improving. Continue to provide support and encouragement.
--- NOTE | 2016-11-17 13:57 | NUR ---
PT VISIBLE IN THE [place] TODAY. HIS GOAL WAS TO ATTEND GROUPS. PT WAS A BIT DISRUPTIVE IN MORNING GROUP, AND WAS ASKED A FEW TIMES TO NOT TALK WHILE OTHERS WERE TALKING. HE DID EVENTUALLY LISTEN, WHEN THIS MHW TOLD HIM HE NEEDED TO EITHER STOP TALKING, OR HE COULD TAKE SPACE IN HIS ROOM. PT CHOSE TO QUIET DOWN INSTEAD. PT HAS SOME INTERACTIONS WITH HIS PEERS, AND HAS BEEN IN A FEW GROUPS TODAY. PT DENIES THOUGHTS OF HURTING HIMSELF WHEN ASKED.
[2016-11-17 16:18] VITALS: BP 136/74
--- NOTE | 2016-11-17 16:34 | SOCIAL WORKER PROG NOTE PSYCH ---
Social Work Progress Note Progress Note Israel has been very talkative throughout the day. At one point he was joking around and introducing himself as "naked Marciano" to people. I told him that wasn' t appropriate here. When we met later in the day he was still laughing and bantering on about the benitez name. I talked with him about how that could be offensive and someone else may not understand his joke. He agreed to stop using the name. He was very hyperverbal and somewhat grandiose during the conversation. He also shared that he has been making plans with people here to take a trip to [facility]. He mentioned funding/ financing some of the people. I talked with him about that decisions like this seem to get him in trouble and taken advantage of. He is looking to discharge on Sunday. I told him that it was up to the team on Sunday to evaluate him. Reminded him that he will be seeing another manager social (Julian) and seeing Dr. Lee. Called his Agricultural Agent Sabrina [phone] and left a message that we are looking to discharge next week most likely and asked if staff should call her directly or another agency number to inform her of the discharge. I have not heard back from her. Called [facility] and got Israel's appt. for with Dr. Leal 11/23 11: 20am. His VNS will need to be informed of discharge if it happens on Sunday.
[2016-11-17 19:54] VITALS: BP 111/61
--- NOTE | 2016-11-17 22:07 | NUR ---
Pt is out in the community mood is stable still disorganized and needs redirection most of the time. Pt is compliant vital signs are stable appetite is good. Will continue to monitor the pt overnight.
--- NOTE | 2016-11-18 06:57 | NUR ---
PATIENT UP TO BATHROOM ONCE, OTHERWISE SLEPT.
[2016-11-18 07:44] VITALS: BP 132/64
[2016-11-18 12:43] VITALS: BP 130/82
--- NOTE | 2016-11-18 14:18 | NUR ---
PT IS PRESENT ON THE UNIT AND SOCIAL WITH PEERS AND STAFF, CAN BE HYPERVERBAL, LOUD, PRESSURED, INAPPROPRIATE COMMENTS/POOR BOUNDARIES ETC AND MEDICATED FOR ATIVAN PRN AND SCHEDULED WELL - DR. HANKS ALSO MADE AWARE OF PT'S HYPOMANIC/MANIC BEHAVIOR & SPEECH AND THAT PT REQUIRES MUCH REDIRECTION AND HANDLES THAT WELL AND IS APOLOGECTIC AND PLEASANT YET DEMONSTRATES LIMITED INSIGHT TO CURRENT STATUS.
[2016-11-18 15:53] VITALS: BP 139/71
--- NOTE | 2016-11-18 17:31 | CP SOUTH PROGRESS NOTE PSYCH ---
Psych (Inpt) Progress Note Progress Note Include the following elements, when applicable: Involvement in the active treatment of the patient with behavioral observations of the patient and the patient's response to the treatment. Review of the ongoing treatment process in the context of the treatment plan. Indication of how multi-disciplinary staff members are carrying out the treatment plan. Plans for future interventions and recommendations for revision of the treatment plan. Liaison with other physicians/providers. Progress Note: Chart reviewed, patient progress discussed with nursing staff. Interviewed patient this afternoon. Hyperverbal, mildly intrusive, though in fair behavioral control. He reports his mood as "really good", says he looks forward to discharge, and denies any SI or HI or perceptual disturbances. Vital signs reviewed and are within normal limits. No new laboratory results today. MSE: Well appearing, adequately groomed man of apparent stated age. Good eye contact. No psychomotor retardation or agitation. Speech was hyperverbal, loud, though fully interruptible. Otherwise within normal limits. Mood was "really good today. Affect was euthymic if not expansive, non-labile, thought process was logical and linear. Thought content was within normal limits. Denies SI or HI or perceptual disturbances. Cognition was grossly intact. Insight and judgment was limited to fair. A/P: Residual symptoms of fidel/hypomania. Continue present management as per primary team.
[2016-11-18 20:21] VITALS: BP 105/68
--- NOTE | 2016-11-18 22:10 | NUR ---
PT IS OFTEN IN [place], INTERACTING WITH OTHERS. PT HAS A PROPENSITY TO BECOME ARGUMENTATIVE WITH STAFF AND PEERS AT TIMES, BUT CAN BE RE-DIRECTED WHEN THIS OCCURS. PT IS MOSTLY COMPLIANT WITH UNIT RULES. MOOD IS STABLE, AFFECT IS BRIGHT TO FULL RANGE, COMMUNICATION IS ORGANIZED, THOUGH HYPERVERBAL, LOUD, AND PRESSURED, AND APPETITE IS NORMAL. PT DENIES SI AT THIS TIME.
--- NOTE | 2016-11-19 05:22 | NUR ---
PATIENT WAS HYPOMANIC, HYPERVERBAL ON EVENINGS. PT FELL ASLEEP IN [facility] AT 2330. PT WENT TO BED AT 0000 AND APPEARED TO SLEEP WELL.
[2016-11-19 07:37] VITALS: BP 119/65
--- NOTE | 2016-11-19 11:09 | CP SOUTH PROGRESS NOTE PSYCH ---
Psych (Inpt) Progress Note Progress Note Include the following elements, when applicable: Involvement in the active treatment of the patient with behavioral observations of the patient and the patient's response to the treatment. Review of the ongoing treatment process in the context of the treatment plan. Indication of how multi-disciplinary staff members are carrying out the treatment plan. Plans for future interventions and recommendations for revision of the treatment plan. Liaison with other physicians/providers. Progress Note: Chart reviewed, patient progress discussed with nursing staff. Interviewed patient this am. Remains Hyperverbal, quite intrusive. Seems to be more intrusive than yesteraday and overnight required redirection involving security. He reports his mood as "really good", highly focused on discharge, and denies any SI or HI or perceptual disturbances. Vital signs reviewed and are within normal limits. No new laboratory results today. MSE: Adequately groomed man of apparent stated age wearing hospital scrubs. Intense eye contact. Mild psychomotor agitation. Speech was hyperverbal, loud, at times uninterruptible. Mood was "really good today". Affect was expansive, labile, thought process was perseverative. Thought content was focused on discharge. Denies SI or HI or perceptual disturbances. Cognition was grossly intact. Insight and judgment was limited. A/P: Continues to demonstrate sx's of fidel, perhaps even increased since yesterday. Will increase morning seroquel to 100 mg and encourage PRN use during day as well as consistent behavioral redirection. Otherwise, continue present management as per primary team.
--- NOTE | 2016-11-19 11:36 | NUR ---
PT REMAINS HYPERVERBAL, TANGENTIAL, GRANDIOSE. PT REQUIRES FREQUENT REDIRECTION AND TENDS TO BE DIFFICULT TO REDIRECT. PT SPEECH IS LOUD AND INSTRUSIVE AND PT FREQUENTLY SPEAKS OVER AND FOR OTHERS. PT REMINDED TO FOCUS ON OWN TREATMENT AND LET OTHERS SPEAK FOR SELF. PT IS PRESENT IN THE COMMUNITY AND INTERACTING WELL WITH OTHERS. PT DENIES SI AT THIS TIME. PT IS ATTENDING GROUPS. VITALS ARE STABLE, APPETITE IS GOOD.
[2016-11-19 12:03] VITALS: BP 149/86
--- NOTE | 2016-11-19 13:23 | NUR ---
DR. RAMSEY CONSULTED RE: PT C/O CHRONIC INTERMITTENT ANKLE SWEELING FROM INJURY YEARS AGO (AROUND 19 YEARS OLD), PT NOT CONCERNED JUST REQUESTING tedS/WRAP OF SOME SORT, TELEPHONE ORDERS RECEIVED FROM DR. RAMSEY AND PT EDUCATED TO ELEVATE LEGS WELL.
[2016-11-19 16:37] VITALS: BP 111/72
[2016-11-19 20:10] VITALS: BP 124/68
--- NOTE | 2016-11-19 22:44 | NUR ---
PT HAS DIFFICULTIES BEING COOPERATIVE WITH STAFF AND PEERS, AND AT TIMES BECOMES ARGUMENTATIVE. PT IS OFTEN IN [place], INTERACTING WITH OTHERS. MOOD IS STABLE, AFFECT IS BRIGHT, COMMUNICATION IS HYPERVERBAL, LOUD, PRESSURED, AND APPETITE IS NORMAL. PT DENIES SI AT THIS TIME.
--- NOTE | 2016-11-20 06:15 | NUR ---
PT HYPOMANIC, HYPERVERBAL, WITH POOR BOUNDARIES, AND REQUIRING REDIRECTION. PT MAKING A MENANCE OF HIMSELF LAST NIGHT AT 2100 HOURS. PT ASKED TO LEAVE [facility]- PATIENT REFUSED. SECURITY CALLED- PATIENT WAS ENCOURAGED TO TAKE MEDS EARLY, WHICH HE EVENTUALLY DID. PT WAS THEN ESCORTED TO HIS ROOM AND ASKED TO STAY THERE FOR AT LEAST 30 MINUTES. PT WAS OUT LATER AND CONVERSING AT OTHER PATIENTS. HE WAS IN BED BY 0000. PT UP AT 0500.
[2016-11-20 07:59] VITALS: BP 125/68
[2016-11-20 12:30] VITALS: BP 131/76
--- NOTE | 2016-11-20 13:12 | CP SOUTH PROGRESS NOTE PSYCH ---
Psych (Inpt) Progress Note Progress Note Include the following elements, when applicable: Involvement in the active treatment of the patient with behavioral observations of the patient and the patient's response to the treatment. Review of the ongoing treatment process in the context of the treatment plan. Indication of how multi-disciplinary staff members are carrying out the treatment plan. Plans for future interventions and recommendations for revision of the treatment plan. Liaison with other physicians/providers. Progress Note: PSYCHIATRIST NOTE, 11/20/2016: I assumed the care of patient this morning, discussed his slow progress to date, current mental status, treatment and discharge planning with staff team today in the daily morning ITTM and met with him myself in individual session. Patient had been clearly hypomanic, pressured, at times confrontative with others; today he appears to be somewhat more settled generally. Serum valproic acid level this morning was within therapeutic range at 84.7mcg/ml and appears to be well-tolerated at increased dose of 2,500mg/day; Mr. Busby's initial assessment lists preadmission dose of Depakote at only 1,500mg;day; during admission to [facility] in 2014 a dose of 2,500mg/day was needed to provide a therapeutic serum valproic acid level. Patient was upset when I spoke with him, insisting "everyone promised I'd be going home today...everybody," whereas, I could not find any reference in the chart to planned discharge for today but that discharge would be "discussed" today. I told patient that from the weekend report, need for security to be called, disruption of the milieu on his part I did not feel comfortable discharging him today but that if he were able to settle himself down and all reports overnight were positive perhaps we could plan a discharge for tomorrow or the next day; currently, patient has an appointment scheduled with Dr. Leal at [facility] on 11/23/2016. Patient told me that my plan was "totally unacceptable" and that I would be "hearing from [his] eyelet maker;" I told patient that if his criminal attorney called I would be happy to speak with him/her. Patient is currently on a maxium regular dose of Seroquel of 800mg/day with Ativan as a PRN; I discontinued the benzodiazepine as patient is disinhibited enough already, and ordered a low dose PRN of Zyprexa.
--- NOTE | 2016-11-20 13:28 | SOCIAL WORKER PROG NOTE PSYCH ---
Social Work Progress Note Progress Note Patient was highly disorganized over the weekend and was involved in a number of altercations, to the point that security had to be called. Patient minimized these issues, as he is anxious to be discharged soon; however no one on staff feel he is near ready. Patient is exhibiting poor insight in not thinking that that he had caused any problems. He was pressured and disruptive, and required medications to be given early. Patient has been intrusive and difficult to re- direct. Security had to be called, and patient needed redirection and limits set. Patient currently irritable about not being able to leave when he wanted to leave. Patient discussed at team mtg this a.m. and it was unanimous that patient was not sufficiently stable for discharge yet.
--- NOTE | 2016-11-20 13:44 | NUR ---
PT VISIBLE IN THE [place]U TODAY. HIS GOAL WAS TO MAKE PLANS FOR DISCHARGE. PT HAS BEEN GOING TO GROUPS, AND HAS SOME INTERACTIONS WITH HIS PEERS. HE HAS BEEN LESS DISRUPTIVE TODAY, AND MORE ON THE QUIET SIDE. HE HAS BEEN COOPERATIVE WITH STAFF DIRECTION, AND THE RULES OF THE UNIT. PT DENIES THOUGHTS OF HURTING SELF WHEN ASKED.
[2016-11-20 16:01] VITALS: BP 131/85
--- NOTE | 2016-11-20 16:09 | SOCIAL WORKER PROG NOTE PSYCH ---
Social Work Progress Note Progress Note Patient has had a difficult weekendand he has been pressured;loud; arguing with others to the point that security hasd needed to be called. Staff reiterated that patient was disruptive and innappropriate. He was intrusive during meditation, Patient does have an appointment with Dr Leal that is scheduled for 11-23-16 at 11:20 a.m. Patient is clearly not ready for discharge today as he yair been hoping. Patient's son Mirza wants to be aware of/involved with discharge plans Patient has [facility] VNS, and anesthetic assistant
[2016-11-20 19:35] VITALS: BP 115/72
--- NOTE | 2016-11-20 20:45 | NUR ---
PT HAS BEEN IN THE MILEU BETWEEN THE LG AND [facility]T; WATCHING TV. PT HAS BEEN BOTHERING PEERS BY FOLLOWING THEM AND ENGAGING IN UNWANTED CONVERSATION. HAS TO BE REDIRECTED BECAUSE OF THE CONTENT OF CONVERSATION. PT IS STABLE BUT CAN GET IRRITATED IF THINGS DONT GO HIS WAY. PT IS ALWAYS ASKING STAFF FOR SOMETHING.
--- NOTE | 2016-11-21 04:13 | NUR ---
SLEPT UNTIL 330 THEN [facility]
[2016-11-21 07:26] VITALS: BP 139/77
[2016-11-21 12:31] VITALS: BP 132/71
--- NOTE | 2016-11-21 13:06 | NUR ---
Dr. Ng called this am regarding patients pedal and leg edema, bilateral 3+. Dr. Carrasco stated that she would be down to examine the patient. The patient's weight this afternoon is 216lb. On admission 11/13 his weight was 198 lbs. representing an [address] Ng called and notified.
--- NOTE | 2016-11-21 14:10 | NUR ---
PT HAS BEEN VISIBLE IN THE [facility]IE[facility] THROUGHOUT THE DAY. IN PLANNING MEETING, PT MADE THE GOAL TO ATTEND GROUPS. HE HAS BEEN DOING JUST THAT, AND HAS BEEN IN ALL THE GROUPS. IN THE MILIEU PT HAS BEEN INTERACTING WITH PEERS AND STAFF APPROPRIATELY, A LOT LESS DISRUPTIVE. PT HAS BEEN COMPLIANT WITH THE RULES OF THE UNIT, AND DENIES THOUGHTS OF HURTING SELF WHEN ASKED.
--- NOTE | 2016-11-21 15:14 | SOCIAL WORKER PROG NOTE PSYCH ---
Social Work Progress Note Progress Note Patient is very irritable today, and has been threatening lawsuits, as he alledges that he had been told that he would be able to leave today or tomorrow. I had scheduled a meeting with patient's son Mirza, who had some serious concerns about pa-tient Son lives in one of patient's homes ([place]), and he works as morales, so he was only able to get here at 4 p.m. as earliest time for meeting on November 23, "17 Patient has not shown any more insight into his behavior, but, rather he is rather comparing self, apparently, to another patient who may be leaving tomorrow. The 2 cases are completely different, but it is adding to Demarcus frustration. As of now, he understands that he will be able to leave when Dr Lee feels it is appropriate. We rather agreed that getting a photo offset printer at this point may not be helpful, aside from being expensive.
--- NOTE | 2016-11-21 15:18 | CP SOUTH PROGRESS NOTE PSYCH ---
Psych (Inpt) Progress Note Progress Note Include the following elements, when applicable: Involvement in the active treatment of the patient with behavioral observations of the patient and the patient's response to the treatment. Review of the ongoing treatment process in the context of the treatment plan. Indication of how multi-disciplinary staff members are carrying out the treatment plan. Plans for future interventions and recommendations for revision of the treatment plan. Liaison with other physicians/providers. Progress Note: PSYCHIATRIST NOTE, 11/21/2016: I discussed this patient's slow progress to date, current mental status, treatment and discharge planning with staff team today in the daily morning ITTM. Patient was up half of last night, not sleeping after about 3:30am. His lower extremity edema is being evaluated by Dr. Mccord and ultrasound of LE was negative; he has been started on PO Lasix but would prefer patient be on IV Lasix; patient will need to be set up with his PCP in [place], Dr. Smiley, for f/ u of pedal edema problem. Patient is going to have 2x/day visits from the nurse (Rosita) from [facility] and also continued services of a Apple Thinner (Sabrina Isabel) who may be able to give patient a ride home tomorrow; these and whatever other planned home services should be ready to start in AM on 11/22/2016. Patient has an appointment scheduled with his [facility] psychiatrist, Dr. Leal, for 2016 at 11:20am. Patient also needs medical f/u care appointment for within the week of discharge to continue management of LE edema. Current dose of Depakote ER (2,500mg/day) is well tolerated to date; patient had been on that dose during a previous admission but apparently lowered to 1,500mg daily on an outpatient basis. Patient attended the on-unit A.A. meeting tonight, as he put it "just to kill time" but said he enjoyed the meeting in any event. During individual session with me patient was milldly pressured, expansive, but not irritable or argumentative; he was not hypomanic and actually had a little insight into the way he behaves and how others expectably react to this behavior. His goal is to return home and enjoy his music and T.V. (has earphones now "so I don't bother the neighbors"). Patient is not sedated and denies any side effects on current medications, dosages. I have tried to compress all psychotropic medications into only two dosing times daily; patient's visiting nurses should be able to supervise both AM and PM medications; HS meds can be given after supper if nurse can administer them at that time (in order to assure that patient actually gets/takes them).
[2016-11-21 15:56] VITALS: BP 148/91
--- NOTE | 2016-11-21 16:29 | PN- Att Addend ---
Attending Addendum Attending Brief Note Called in to see the patient as he has developed bilateral lower extremity swelling. Patient claims that he noticed that 2 days ago. Did not happen before. TEDS stockings were ordered. His vital signs are stable. Reviewing previous echo he had a history of diastolic dysfunction but reviewing home medications he does not take any diuretics. I have ordered an LE doppler ultrasound to rule out DVT. I ordered some Lasix. Ideally IV Lasix would be the way to go but unfortunately they cannot administer IV Lasix at [facility]patient [facility] as I was told by the nursing staff. I have ordered by mouth Lasix. We'll monitor his blood pressure and I will check his labs in the morning. I have also ordered a repeat echo. If no response to oral lasix, we will have to switch to IV.
--- NOTE | 2016-11-21 18:41 | ULTRASOUND REPORT ---
EXAMINATION: US TRIPLEX LOWER EXTREMITY, BILATERAL CLINICAL INFORMATION: Bilateral lower extremity swelling. COMPARISON: None TECHNIQUE: Color-flow triplex imaging with spectral analysis and compression Doppler were performed on the bilateral lower extremities. The study is limited due to patient body habitus. FINDINGS: Respiratory variation, normal compression and augmented flow are noted throughout the bilateral lower extremities. The visualized common femoral vein, superficial femoral vein, profunda femoral vein, popliteal vein and proximal calf veins show no evidence of deep venous thrombosis. There is a 4.2 x 1.3 x 2.4 cm fluid collection in the left popliteal fossa medially. The popliteal fossa in the right lower extremity is normal. IMPRESSION: Normal triplex scan without evidence of deep venous thrombosis involving the bilateral lower extremities. Fluid collection measuring 4.2 x 1.3 x 2.4 cm in size in the left popliteal fossa, consistent with a Hall's cyst.
[2016-11-21 20:11] VITALS: BP 131/74
--- NOTE | 2016-11-21 21:38 | NUR ---
PT IS INTRUSIVE, HAS POOR BOUNDARIES BUT IS SOMEWHAT REDIRECTABLE. PT WAS ASKED TO LEAVE WRAP UP GROUP BECAUSE HE WAS TALKING OVER OTHERS AND AT ONE POINT WAS SWEARING AND BECOMING VULGAR. PT REFUSED TO LEAVE THE GROUP AND EVENTUALLY CALMED DOWN. VS ARE STABLE AND DENIES ANY SI/HI TO THIS MHW. ANTICIPATING DC TOMORROW.
--- NOTE | 2016-11-22 06:12 | NUR ---
AT THE BEGINNING OF THE NIGHT, THE PATIENT TOOK THE "BATHROOM CLOSED UNTIL 0600" SIGN OFF OF THE BACK HALLWAY DOOR AND THREW IT ON THE GROUND RIGHT IN FRONT OF STAFF, IRRITATED THAT HE WOULD NOT BE ABLE TO USE THAT BATHROOM; PATIENT ENDED UP SLEEPING UNTIL 0445; HE PLACED HIS USED URINAL DIRECTLY IN FRONT OF STAFF ON THE DESK, STATING "I RINSED IT OUT!"; PATIENT RUDE, INTRUSIVE, POOR RESPONSE TO REDIRECTION.
[2016-11-22 07:56] VITALS: BP 149/72
--- NOTE | 2016-11-22 09:04 | SOCIAL WORKER PROG NOTE PSYCH ---
Social Work Progress Note Progress Note Discusses Israel in team meeting with Dr. Woodard and staff on his progress. Per report Israel was exhibiting poor boundaries with peers and staff - swearing and being intrusive and loud - disrespectful towards female peer. Dr. Lee, Yadira Devries, RN senior director of strategy and I met [facility] this morning to discuss his behavior and expectations going forward. Israel seemed surprized about the negative reports from staff, wanted to debate the concerns, but did agree to do better going forward on the unit. Discussed how he can ask staff how he is doing and to "check out" how he is speaking and how he is received. Israel has an intense glare and affect. He wants to go home and continue with Care for aftercare - Outpatient or IOP. Family meeting scheduled for 11/23 at 4pm with Israel's adult children - and Sabrina, his cryolite recovery operator. Israel denied SI/HI , no psychosis. His mood is irritable, flat affect. [facility] call Vanessa at [facility] (as his nurse, Rosita is out this week). I spoke with Vanessa at [facility] today and she stated she will have someone see Israel same day if needed for medications. [facility] . His medications would need to be called into [facility] in [place] - when cleared to discharge. I spoke with Sabrina - his Attorney General - she stated at baseline Israel is "very calm." She stated she sees Israel 6 days per week for a total of 21hours per week (about 2-4hrs per day). She stated goals are to increase his socialization. I asked if she would work with Israel on possibly gonig to AA/NA meetings. She is interested in coming to the family meeting tomorrow as well at 4pm.
--- NOTE | 2016-11-22 11:04 | CP SOUTH PROGRESS NOTE PSYCH ---
Psych (Inpt) Progress Note Progress Note Include the following elements, when applicable: Involvement in the active treatment of the patient with behavioral observations of the patient and the patient's response to the treatment. Review of the ongoing treatment process in the context of the treatment plan. Indication of how multi-disciplinary staff members are carrying out the treatment plan. Plans for future interventions and recommendations for revision of the treatment plan. Liaison with other physicians/providers. Progress Note PSYCHIATRIST NOTE, 11/22/2016: I discussed this patient's slow and uneven progress to date, current mental status/behavior on the unit milieu and in groups, treatment and discharge planning with staff team today in the daily morning ITTM. Unfortunately, patient had a difficult evening/night, causing disruption/disturbances which twice eventuated in necessity for security to be called in to help deal with patient's abusive and (verbally) provocative behavior; patient did not respond well or promptly to attempts at education by staff as to proper behavior/limits on CP [facility]. He was given a single PRN dose of Zyprexa, 2.5mg last evening and PRN dose doubled to 5mg but not administered. The team does not consider patient ready for discharge today. Yadira Devries, RNc, Surtass Analyst, Bailee Montes LCSW, covering clinician, and I all sat down together with patient today to go over yesterday/last evening's events as reported by the charge nurse , Adilene Michel. Patient took the report of events surprizingly well, in my opinion; while he disagreed with some of them he accepted that he would not be discharged today and that the next opportunity to do so would be after planned family meeting with his son, Mirza, Sabrina chen, and us tomorrow, 11/23/2016, at 4pm. Patient was not irritable during the meeting, did not lose his temper and took feedback from us readily. Serum valproic acid level this morning continues to be optimal, at 85.9mcg/ml and well tolerated to date at current dose of 2,500mg/day. It looks that patient has not been treated with [place] since 2006; I am wondering what happened with that and will ask patient at next opportunity.
[2016-11-22 12:40] VITALS: BP 137/70
--- NOTE | 2016-11-22 13:58 | NUR ---
PT VISIBLE IN THE [place] TODAY. HIS GOAL WAS TO MAKE PLANS FOR DISCHARGE, AND BE MINDFUL OF PEERS. PT WAS DISRUPTIVE IN PLANNING MEETING AND WAS ASKED TWICE BEFORE HE WAS ASKED TO GET UP AND SWITCH CHAIRS ACROSS THE ROOM TO DECREASE TALKING TO HIS PEERS SITTING NEXT TO HIM. PT THOUGHT HE WAS LEAVING TODAY, BUT AFTER TALKING WITH THE DOCTOR FOUND OUT THAT HE WASNT. PT HAS BEEN GOING TO THE OTHER GROUPS TODAY, AND INTERACTING WITH PEERS. HE DENIES THOUGHTS TO HURT HIMSELF WHEN ASKED.
[2016-11-22 15:45] VITALS: BP 141/79
--- NOTE | 2016-11-22 17:31 | NUR ---
HOD DR. MARCUS ON UNIT THIS AFTERNOON TO REASSESS BILATERALLY LOWER EXTREMETY EDEMA, NO FURTHER ORDERS AT THIS TIME.
[2016-11-22 19:26] VITALS: BP 146/90
--- NOTE | 2016-11-22 21:40 | NUR ---
PT HAS DIFFICULTIES AT TIMES COOPERATING WITH STAFF AND PEERS, AND COMPLYING WITH UNIT RULES. PT TENDS TO BE RELATIVELY INTRUSIVE WITH OTHERS, AND HAS A PROPENSITY TO RUMINATE OVER NEGATIVE INTERACTIONS WITH OTHER PTS. PT CAN BE CHALLENGING AT TIMES TO RE-DIRECT, BUT WILL SO IN TIME. PT APPEARS TO BE SLIGHTLY DELUSIONAL, TALKING ABOUT EXTRAVAGANT TRIPS HE WISHES TO TAKE TO [place] INVOLVING INDIVIDUALS HE IS MEETING. MOOD IS NOT FULLY STABLE, AFFECT IS BRIGHT, COMMUNICATION IS ORGANIZED THOUGH HYPERVERBAL, LOUD, AND PRESSURED, AND APPETITE IS NORMAL. PT DENIES SI AT THIS TIME.
--- NOTE | 2016-11-22 23:09 | NUR ---
GOT A LITTLE LOUD ABOUT 1900. GIVEN PRN AND REDIRECTED FREQUENTLY UNTIL HE SETTLED. EXHIBITS A CONSTANT NEED TO CLEAN. COULD NOT STAY QUIET FOR MORE THAN A COUPLE MINUTES AT BEST. SHORT TERM MEMORY SEEMS IMPAIRED.
--- NOTE | 2016-11-23 07:31 | NUR ---
PT HYPOMANIC, REQUIRING REDIRECTION ON EVENINGS. PT INCONTINENT AT 0330 AND UP FOR THE REST OF THE NIGHT. PT ENCOURAGED TO KEEP FEET ELEVATED. THIS RN ASKED FOR NEW TEDS OTHERS HAD BECOME SOILED. PT SLIGHTLY MORE REDIRECTABLE.
[2016-11-23 07:41] VITALS: BP 143/82
[2016-11-23 12:34] VITALS: BP 144/88
--- NOTE | 2016-11-23 13:36 | NUR ---
PT IS PRESENT ON THE UNIT AND SOCIAL WITH PEERS AND STAFF, CAN BE LOUD AND INTRUSIVE AT TIMES YET IS REDIRECTABLE, DID TAKE A SHORT NAP IN ROOM EARLIER IN THE DAY, MEDICATION COMPLIANT, ATTENDING GROUPS AND REPORTED HAVING A FAMILY MEETING AT 4PM AND HOPING FOR DISCHARGE, FULL RANGE/BRIGHT AFFECT, DR. MAGUIRE ON THE UNIT AT THIS TIME RE-EVALUATING BILATERAL LOWER EXTREMITIES AND WILL DETERMINE OF LASIX NEEDS TO BE ADJUSTED, NO COMPLAINTS OR ISSUES FROM PT.
--- NOTE | 2016-11-23 13:42 | NUR ---
PER DR. MAGUIRE - WILL NOT INCREASE LASIX OF YET, WILL ORDER LAB WORK FOR 11/24/16 AND DEPENDING ON THOSE RESULTS, WILL GO FROM THERE.
--- NOTE | 2016-11-23 14:25 | CP SOUTH PROGRESS NOTE PSYCH ---
Psych (Inpt) Progress Note Progress Note Include the following elements, when applicable: Involvement in the active treatment of the patient with behavioral observations of the patient and the patient's response to the treatment. Review of the ongoing treatment process in the context of the treatment plan. Indication of how multi-disciplinary staff members are carrying out the treatment plan. Plans for future interventions and recommendations for revision of the treatment plan. Liaison with other physicians/providers. Progress Note: PSYCHIATRIST NOTE (FAMILY MEETING), 11/23/2016: I discussed this patient's slow and uneven progress to date, current mental status, treatment and discharge planning with staff team today in the daily morning ITTM and Mr. Chopra and I met together with patient and his family ( daughter, son and also Sabrina Isabel, his Metal Furniture Glazier for the past 4+ years) in a joint session today; the latter was very helpful, obviously on top of the situation with patient and their relationship appears to be positive and solid. Patient seated himself at the head of the table and was "holding court" when I came into the room; indeed, I was informed that patient "had done most of the talking" to that point in the meeting. Daughter and especially son, Mirza, expressed appropriate concern for patient's welfare, safety and future wellness. We discussed the difficulties still being experienced on the unit milieu with patient getting into arguments with other patients and staff, particularly later in the day and the need for him to get better sleep and have good sleep reports from night staff before discharge. We discussed medications; son noted that his father seemed to do best on Depakote when serum concentration was "about 110" which is a little higher than I usually go with this medication but still within "official" therapeutic range of 50-125mcg/ml; patient agreed to increase dose of Depakote ER in order to see if we can get valproic acid level up into the "110 range" by 11/27/2016. I will increase dose by 250mg/ day to start, if well tolerated, increase over the weekend by another 250mg and repeat level in AM 11/27/2016. Son and daughter emphasized how much they felt their father had improved since admission but that he "wasn't quite ready yet" AND patient had to agree with them! That itself was a beakthrough. Son noted father doing better during the early part of the day after titration of morning dose of Seroquel up to 200mg; I noted I would have increased the AM dose further didn't feel comfortable decreasing the HS (600mg) yet while patient was still up at night and restive.
--- NOTE | 2016-11-23 14:40 | NUR ---
PT VISIBLE IN THE [place] TODAY. HIS GOAL WAS PREPARE FOR FAMILY MEETING, AND HOPE FOR DISCHARGE TODAY. IN THE MILIEU TODAY PT HAS BEEN COMPLIANT AND A LOT CALMER TODAY. HE HAS BEEN ATTENDING GROUPS, AND INTERACTING WELL WITH HIS PEERS. PT DENIES THOUGHTS OF HURTING HIMSELF WHEN ASKED.
[2016-11-23 16:47] VITALS: BP 150/67
--- NOTE | 2016-11-23 17:09 | ECHOCARDIOGRAM REPORT ---
BEE OBREGON Age: 66 : 1950 Gender: M Exam Date: 11/22/2016 16:25 Exam Location: [facility] Ht (in): 72 Wt (lb): 198 BSA: 2.15 BP: 167 / 77 Ordering Physician: ALFRED MARCUS MD Referring Physician: Eliud Turner MD Technologist: Diane Reich [facility] Room Number: B8-01 Indications: HEART FAILURE Rhythm: Sinus Technical Quality: Poor FINDINGS Left Ventricle Small left ventricular cavity. Mild concentric left ventricular hypertrophy. No obvious regional wall motion abnormalities. Normal left ventricular ejection fraction visually estimated at >65%. Abnormal relaxation filling pattern of the left ventricle for age (stage 1 diastolic dysfunction). Right Ventricle Right ventricle at upper limits of normal. Right Atrium Normal right atrial size. Left Atrium Left atrial size at the upper limits of normal. Mitral Valve Mild mitral annular calcification. Mitral valve mildly thickened. Mild mitral regurgitation. Aortic Valve Aortic valve not well visualized. Mild aortic sclerosis. No aortic valve stenosis or regurgitation. Tricuspid Valve Structurally normal tricuspid valve. Trace tricuspid regurgitation. No evidence of pulmonary hypertension. Right ventricular systolic pressure estimated to be within the normal range at 10 mmHg. Pulmonic Valve Pulmonic valve not well visualized, grossly normal. No pulmonic regurgitation. Pericardium No pericardial effusion. Great Vessels Normal size aortic root. CONCLUSIONS Small left ventricular cavity. Mild concentric left ventricular hypertrophy. Normal left ventricular ejection fraction visually estimated at > 65%. Abnormal relaxation filling pattern of the left ventricle for age (stage 1 diastolic dysfunction). Right ventricle at upper limits of normal. Normal right atrial size. Left atrial size at the upper limits of normal. Mild mitral regurgitation. Trace tricuspid regurgitation. No evidence of pulmonary hypertension. Eliud Turner M.D. (Electronically Signed) Final Date: 23 November 2016 17:08 MEASUREMENTS (Male / Female) Normal Values 2D ECHO LV Diastolic Diameter PLAX 3.7 cm 4.2 - 5.9 / 3.9 - 5.3 cm LV Systolic Diameter PLAX 2.0 cm 2.1 - 4.0 cm LV Fractional Shortening PLAX 45.9 % 25 - 46 % LV Ejection Fraction 2D Teich 78.1 % IVS Diastolic Thickness 1.2 cm LVPW Diastolic Thickness 1.2 cm LV Relative Wall Thickness 0.6 RV Internal Dim ED PLAX 3.3 cm 1.9 - 3.8 cm LVOT Diameter 2.2 cm Aortic Root Diameter 3.4 cm LA Systolic Diameter LX 4.1 cm 3.0 - 4.0 / 2.7 - 3.8 cm LA Volume 58.0 cm 18 - 58 / 22 - 52 cm Ascending Aorta Diameter 3.2 cm DOPPLER AV Peak Velocity 178.0 cm/s AV Peak Gradient 12.7 mmHg AV Mean Velocity 126.0 cm/s AV Mean Gradient 7.0 mmHg AV Velocity Time Integral 38.1 cm LVOT Peak Velocity 148.0 cm/s LVOT Peak Gradient 8.8 mmHg LVOT Mean Velocity 98.4 cm/s LVOT Mean Gradient 4.0 mmHg LVOT Velocity Time Integral 32.0 cm LVOT Stroke Volume 121.6 cm AV Area Cont Eq vti 3.2 cm AV Area Cont Eq pk 3.2 cm MV Peak Velocity 104.0 cm/s MV Peak Gradient 4.3 mmHg MV Mean Velocity 57.6 cm/s MV Mean Gradient 2.0 mmHg Mitral E Point Velocity 93.3 cm/s Mitral A Point Velocity 101.0 cm/s Mitral E to A Ratio 0.9 MV PHT Velocity 87.7 cm/s MV Deceleration [place] 252.0 cm/s MV Pressure Half Time 104.4 ms MV Area PHT 2.1 cm MV Deceleration Time 267.0 ms TR Peak Velocity 116.0 cm/s TR Peak Gradient 5.4 mmHg Right Atrial Pressure 5.0 mmHg Pulmonary Artery Systolic Pressu 10.4 mmHg Right Ventricular Systolic Press 10.4 mmHg PV Peak Velocity 124.0 cm/s PV Peak Gradient 6.2 mmHg PV Mean Velocity 80.8 cm/s PV Mean Gradient 3.0 mmHg PV Velocity Time Integral 24.8 cm LV E' Lateral Velocity 8.2 cm/s Mitral E to LV E' Lateral Ratio 11.4 LV E' Septal Velocity 5.7 cm/s Mitral E to LV E' Septal Ratio 16.5
--- NOTE | 2016-11-23 17:15 | SOCIAL WORKER PROG NOTE PSYCH ---
Social Work Progress Note Progress Note Patient had family meeting with his daughter Ren, his sonTerry and Geoffrey from [facility], along with myself and Dr Rosa Wood started off the meeting stating what he thought everyone was thinking, and almost feling that there was collusion among family and Sabrina and staff; and they were going to tell him that they thought that he was manic. Patient went on to confirm everyones opinion that, while somewhat better, he is stll quite manic, and he frequently repeated the same things over and over, and used 200 words to state what could have been communicated in 10 words. Depakote level is up and in therapeutic range; however, Sabrina from [facility] had indicated that Israel did best on a higher threshold; thus the goal will be to get his level in the 110-120 range, where he functions best. All present agree he needs to be here at least through the weekend, and d/c on Sunday will be contingent on patient going to bed and staying there All are supportive, and no one wants to see his apartment lost due to problems with neighbors. Patient will not be calling can doffer, as he is satisfied with plan. a productive meeting.
[2016-11-23 20:08] VITALS: BP 124/76
--- NOTE | 2016-11-23 21:11 | NUR ---
PT IS VISIBLE ON UNIT, SOCIALIZING WITH PEERS AND STAFF. ATTENDED AA THIS EVENING. AT TIMES PT REQUIRES REDIRECTION BUT RESPONDS WELL TO IT. LESS INTRUSIVE WITH PEERS AND STAFF. NO COMPLAINTS OR SI REPORTED. PT HAS A STABLE MOOD AND FULL RANGE AFFECT.
--- NOTE | 2016-11-24 05:00 | NUR ---
PT UP A FEW TIMES TO TOILET. PT APPEARED TO SLEEP WELL. TEDS STOCKINGS OFF.
[2016-11-24 07:50] VITALS: BP 124/76
--- NOTE | 2016-11-24 10:48 | NUR ---
PT IS STABLE WITH FULL RANGE OF AFFECT. PT IS LESS INTRUSIVE THIS MORNING YET STILL VISIBLE WTIHIN THE COMMUNITY/INTERACTING WITH PEERS/STAFF APPROPRIATELY. REQUIRES LITTLE TO NO REDIRECTION. PT IS ATTENDING ALL GROUPS TODAY. VS ARE STABLE AND DENIES ANY SI/HI TO THIS MHW.
[2016-11-24 12:42] VITALS: BP 135/67
--- NOTE | 2016-11-24 12:45 | PN- Att Addend ---
Attending Addendum Attending Brief Note Followed the patient lower extremity edema today. His edema has not improved. Denies any shortness of breath or chest pain. Physical exam: Heart: No JVD, S1 and S2 normal Lung sounds clear Abdomen-soft nontender nondistended Lower extremity-pitting edema extending up to the knees Labs done today does not show any significant abnormality, stable kidney function. Recommendations: 1. Increase Lasix to 60 mg daily. 2. Recheck BEP on Sunday to follow up on kidney function. His Lasix dose can be adjusted on Sunday if needed. Encourage leg elevation. Patient needs to follow up with Dr. Turner after discharge, as he mentioned that his waste management recycling technician is Dr. Turner and his missed his appointment in the recent past.
--- NOTE | 2016-11-24 13:51 | SOCIAL WORKER PROG NOTE PSYCH ---
Social Work Progress Note Progress Note Patient seen in kitchen while he was finishing lunch and talking with some of the other patients Clearly there was a complete lack of edginess about him. I think the meeting was beneficial for patient on the previous day; and hearing the same thing from all family and treaters was good. He seems much more relaxed, feeling fairly confident that, if he goes along with the program, he most likely will leave on Sunday, November 27, 2013. Patient showed relaxed demeanor, with no grandiosity. If he were to continue as he is presenting he should be fine for d/c. Patient expecting company over weekend. Flavor of the conversations was similar to 2 old friends checking in with each other,
[2016-11-24 16:03] VITALS: BP 141/80
--- NOTE | 2016-11-24 16:13 | CP SOUTH PROGRESS NOTE PSYCH ---
Psych (Inpt) Progress Note Progress Note Include the following elements, when applicable: Involvement in the active treatment of the patient with behavioral observations of the patient and the patient's response to the treatment. Review of the ongoing treatment process in the context of the treatment plan. Indication of how multi-disciplinary staff members are carrying out the treatment plan. Plans for future interventions and recommendations for revision of the treatment plan. Liaison with other physicians/providers. Progress Note: PSYCHIATRIST NOTE, 11/24/2016: I discussed this patient's slow and at times uneven but clear progress to date, current mental status, treatment and discharge planning today with staff team in the daily morning ITTM and also met with him again myself in individual session. He and I spoke some about yesterday's family meeting and his need to listen to his children when they tell him he is heading towards a manic episode as, as he acknowledges, he tends to not recognize "early enough" himself. Patient is clearly much less irritable, confrontational and argumentative, at least with me, at this time, and more accepting of treatment recommendations offered AND the observations of his children, as well as his personal worker, Sabrina Isabel, as he demonstrated during the family meeting. Dose of Depakote ER will be increased over the coming weekend to 2,750mg/day with repeat valproic acid level on 11/27/2016. He is tolerating current medication regimen well without daytime sedation, observed or perceived side effects. His weight has been dropping 1-2 pounds a day with the diuretic therapy; dose of Lasix has been increased to 60mg/day; he will need to follow up with his PCP, Dr. Smiley, and stevedoring supervisor, Dr. Turner, upon discharge next week and will also need set appointments with both before he leaves [facility].
[2016-11-24 20:01] VITALS: BP 141/73
--- NOTE | 2016-11-24 22:22 | NUR ---
PT IS OFTEN IN [place], INTERACTING WITH OTHERS. MOSTLY COMPLIANT WITH UNIT RULES, COOPERATING WITH STAFF AND PEERS. MOOD IS STABLE, AFFECT IS BRIGHT TO FULL RANGE, COMMUNICATION IS ORGANIZED, HYPERVERBAL, LOUD AT TIMES, AND APPETITE IS NORMAL. PT DENIES SI AT THIS TIME.
--- NOTE | 2016-11-25 06:28 | NUR ---
PATIENT WAS AWAKE SEVERAL TIMES DURING THE NIGHT; HE MADE IT TO THE BATHROOM ONCE, BUT AROUND 0420 HE WOKE UP, WENTO INTO ROOM B7, AND URINATED IN THE TRASH CAN; HE WAS REDIRECTED BY STAFF; UNCLEAR IF THIS WAS SIMPLE CONFUSION; PATIENT WAS INCONTINENT IN FRONT OF HIS DOOR AROUND 0530; PATIENT EDUCATED ON USING URINAL; HE STATED HIS URINAL HAD BEEN TAKEN; HE WAS GIVEN A NEW ONE.
[2016-11-25 07:39] VITALS: BP 127/68
[2016-11-25 12:01] VITALS: BP 123/73
--- NOTE | 2016-11-25 12:08 | CP SOUTH PROGRESS NOTE PSYCH ---
Psych (Inpt) Progress Note Progress Note Include the following elements, when applicable: Involvement in the active treatment of the patient with behavioral observations of the patient and the patient's response to the treatment. Review of the ongoing treatment process in the context of the treatment plan. Indication of how multi-disciplinary staff members are carrying out the treatment plan. Plans for future interventions and recommendations for revision of the treatment plan. Liaison with other physicians/providers. Progress Note: Pt notes that he is "fine." Wants to leave on Sunday. Denies SI or HI. Denies AVHs. Wants Depakote increased, which has already been done. Current Medications Sig/Haydee Start time Last Medication Dose Route Stop Time Status Admin Acetaminophen 650 MG Q4P PRN 11/13 1645 AC 11/22 PO 1237 Al Hydroxide/Mg 30 ML Q6-PRN PRN 11/13 1645 AC Hydroxide PO Calcium Carbonate 500 MG Q8P PRN 11/25 1015 AC PO Carbidopa/Levodopa 1 TAB TID 11/13 1600 AC 11/25 PO 0815 Divalproex Sodium 1,250 MG 0811/25 0800 AC 11/25 PO 0814 Divalproex Sodium 250 MG 1300 11/24 1300 DC 11/24 PO 11/24 1301 1317 Divalproex Sodium 1,500 MG 2000 11/22 1999 AC 11/24 PO 2016 Finasteride 5 MG AT BEDTIME 11/13 2200 AC 11/24 PO 2132 Fludrocortisone 100 MCG DAILY 11/14 1000 AC 11/25 Acetate PO 0815 Furosemide 60 MG DAILY 11/25 1000 AC 11/25 PO 0815 Furosemide 40 MG DAILY 11/21 1407 DC 11/24 PO 0925 Levothyroxine Sodium 0.088 MG DAILY AC 11/14 0700 AC 11/25 PO 0638 Lorazepam 1 MG 0 11/21 2200 AC 11/24 PO 2132 Magnesium Hydroxide 30 ML AT BEDTIME PRN 11/13 2200 AC PO Midodrine 10 MG 0800,1200,1600 11/13 1200 AC 11/25 PO 0814 Nicotine 2 MG Q2 HRS NEEDED PRN 11/13 1645 AC PO Olanzapine 5 MG Q4P PRN 11/21 1915 AC 11/22 PO 1823 Omeprazole 20 MG DAILY AC 11/13 0700 AC 11/22 PO 0642 Primidone 100 MG BID 11/13 2200 AC 11/25 PO 0815 Quetiapine Fumarate 200 MG 1000 11/22 1000 AC 11/25 PO 0814 Quetiapine Fumarate 600 MG 11/15 AC 11/24 PO 2015 Laboratory Tests 11/24 0643 Chemistry Sodium (137 - 145 mmol/L) 137 Potassium (3.5 - 5.1 mmol/L) 5.0 Chloride (98 - 107 mmol/L) 99 Carbon Dioxide (22 - 30 mmol/L) 32 H Anion Gap (5 - 16) 6 BUN (9 - 20 mg/dL) 27 H Creatinine (0.7 - 1.2 mg/dL) 1.0 Estimated GFR (>60 ml/min) > 60 BUN/Creatinine Ratio (7 - 25 %) 27.0 H Vital Signs Date Time Temp Pulse Resp B/P Pulse O2 O2 Flow FiO2 Ox Delivery Rate 11/25 1201 80 123/73 11/25 0739 97.6 90 127/68 11/24 2000 98.5 82 141/73 11/24 1603 85 141/80 11/24 1242 83 135/67 MSE Appears as stated age. Cooperative behavior, good, appropriate eye contact. Nl speech rate and prosody. No psychomotor retardation or agitation. Mood fine Affect slightly irritable, constricted, appropriate, non-liable. Linear and goal directed thought process. Denies SI or HI. Does not appear to be responding to internal stimuli. Denies AVHs, paranoia, or delusions. I/J: limited A/P: Pt with Bipolar disorder now with improved mood stability. VPA being titrated upwards and family notes pt does better with higher doses of VPA. - Continue current VPA: 1250mg daily and 1500mg nightly - Continue current medication regimen
--- NOTE | 2016-11-25 13:21 | NUR ---
PT IS COMPLIANT AND COOPERATIVE WITH UNIT RULES. PT IS OUT IN COMMUNITY INTERACTING WELL WITH STAFF AND PEERS. PT DID NOT NEED ANY REDIRECTION ON BEHAVIOR AND WAS NOT INTRUSIVE THUS FAR. PT MOOD IS STABLE WITH A FULL RANGE AFFECT. PT IS ATTENDING GROUPS. PT DENIES SI THOUGHTS.
[2016-11-25 15:59] VITALS: BP 129/71
[2016-11-25 19:51] VITALS: BP 149/83
--- NOTE | 2016-11-25 22:18 | NUR ---
PATIENT ALERT AND ORIENTED X3, BUT BEHAVIOR STILL SLIGHTLY DISORGAINZED AT TIMES; THIS EVENING, THE PATIENT TRIED THE HANDLE ON ONE OF THE EXIT DOORS, STATING HE NEEDED TO GO TO THE BATHROOM; PATIENT STILL INTRUSIVE AT TIMES, TRYING TO CONVERSE WITH PEERS WHO DON'T WANT TO TALK; VITAL SIGNS WNL; BLE EDEMA APPEARS STABLE, NO INCREASE.
--- NOTE | 2016-11-26 06:27 | NUR ---
PATIENT SLEPT ALL NIGHT.
[2016-11-26 07:38] VITALS: BP 111/71
--- NOTE | 2016-11-26 10:23 | CP SOUTH PROGRESS NOTE PSYCH ---
See Addendum Psych (Inpt) Progress Note Progress Note Include the following elements, when applicable: Involvement in the active treatment of the patient with behavioral observations of the patient and the patient's response to the treatment. Review of the ongoing treatment process in the context of the treatment plan. Indication of how multi-disciplinary staff members are carrying out the treatment plan. Plans for future interventions and recommendations for revision of the treatment plan. Liaison with other physicians/providers. Progress Note: Pt notes that he is "good." He spoke to daughter on the phone yesterday. They had a good conversation and he feels that she is very supportive of him. He slept well without DFA or DSS. Denies SI or HI. Denies AVHs. Current Medications Sig/Haydee Start time Last Medication Dose Route Stop Time Status Admin Acetaminophen 650 MG Q4P PRN 11/13 1645 AC 11/22 PO 1237 Al Hydroxide/Mg 30 ML Q6-PRN PRN 11/13 1645 AC Hydroxide PO Calcium Carbonate 500 MG Q8P PRN 11/25 1015 AC PO Carbidopa/Levodopa 1 TAB TID 11/13 1600 AC 11/26 PO 0924 Divalproex Sodium 1,250 MG 11/25 0800 AC 11/26 PO 0924 Divalproex Sodium 1,500 MG 11/21 AC 11/25 PO 195 Finasteride 5 MG AT BEDTIME 11/13 2200 AC 11/25 PO 2139 Fludrocortisone 100 MCG DAILY 11/14 1000 AC 11/26 Acetate PO 0923 Furosemide 60 MG DAILY 11/25 1000 AC 11/26 PO 0923 Levothyroxine Sodium 0.088 MG DAILY AC 11/14 07 AC 11/26 PO 0641 Lorazepam 1 MG 11/21 2200 AC 11/25 PO 2139 Magnesium Hydroxide 30 ML AT BEDTIME PRN 11/13 2200 AC PO Midodrine 10 MG 0800,1200,1600 11/13 1200 AC 11/26 PO 0923 Nicotine 2 MG Q2 HRS NEEDED PRN 11/13 1645 AC PO Olanzapine 5 MG Q4P PRN 11/21 1915 AC 11/22 PO 1823 Omeprazole 20 MG DAILY AC 11/13 0700 AC 11/22 PO 0642 Primidone 100 MG BID 11/13 2200 AC 11/26 PO 0923 Quetiapine Fumarate 200 MG 1000 11/22 1000 AC 11/26 PO 0924 Quetiapine Fumarate 600 MG 11/15 AC 11/25 PO 1955 Laboratory Tests 11/26 11/24 1015 0643 Chemistry Sodium (137 - 145 mmol/L) Pending 137 Potassium (3.5 - 5.1 mmol/L) Pending 5.0 Chloride (98 - 107 mmol/L) Pending 99 Carbon Dioxide (22 - 30 mmol/L) Pending 32 H Anion Gap (5 - 16) Pending 6 BUN (9 - 20 mg/dL) Pending 27 H Creatinine (0.7 - 1.2 mg/dL) Pending 1.0 Estimated GFR (>60 ml/min) > 60 BUN/Creatinine Ratio (7 - 25 %) Pending 27.0 H Vital Signs Date Time Temp Pulse Resp B/P Pulse O2 O2 Flow FiO2 Ox Delivery Rate 11/26 0738 98.0 87 111/71 11/25 1951 98.0 81 149/83 11/25 1559 94 129/71 11/25 1201 80 123/73 MSE Appears as stated age. Cooperative behavior, good, appropriate eye contact. Nl speech rate and prosody. No psychomotor retardation or agitation. Mood good Affect much less irritable, constricted, appropriate, non-liable. Linear and goal directed thought process. Denies SI or HI. Does not appear to be responding to internal stimuli. Denies AVHs, paranoia, or delusions. I/J: limited A/P: Pt with Bipolar disorder now with improved mood stability. VPA being titrated upwards and family notes pt does better with higher doses of VPA. - Chem 7 pending, borderline high potassium on 11/24 - Continue current VPA: 1250mg daily and 1500mg nightly - Continue current medication regimen
[2016-11-26 11:35] VITALS: BP 104/57
--- NOTE | 2016-11-26 13:20 | NUR ---
spoke with Dr Christin bustamante: lab values, LLE and lasix dosing. No new orders at this time.
--- NOTE | 2016-11-26 13:28 | NUR ---
OUT IN COMMUNITY. HAS BEEN RELATIVELY QUIET TODAY. HAS NOT REQUIRED ANY REDIRECTION. mOOD IS STABLE, FULL RANGE OF AFFECT, DENIED THOUGHTS OF SELF HARM WHEN ASKED. LLEdema LOOKS SLIGHTLY BETTER AND HE REPORTS HIS SHOES ARE LOOSER. PARTICIPATED IN GROUP AND INTERACTED WELL WITH PEERS AND STAFF
[2016-11-26 15:42] VITALS: BP 124/61
[2016-11-26 19:16] VITALS: BP 142/80
--- NOTE | 2016-11-26 19:53 | NUR ---
PT IS STABLE WITH FULL RANGE OF AFFECT, PRESENT WITHIN THE COMMUNITY FOR ENTIRE EVENING SHIFT, PT HAS MAINTAINING CONTROL OF THE TV ALL EVENING WHICH UPSET SOME OF THE OTHER PEERS. RN SPOKE WITH PT AND THE ISSUE WAS RESOLVED EFFORTLESSLY. PT REQUIRES LITTLE TO NO REDIRECTION. VS ARE STABLE AND DENIES ANY SI/HI TO THIS MHW.
--- NOTE | 2016-11-27 07:19 | NUR ---
PATIENT WAS AWAKE SEVERAL TIMES DURING THE NIGHT; AT ONE POINT HE WALKED DOWN HALLWAY, AND TOWARDS KITCHEN WITH HIS FULL URINAL; HE HAD TO BE REDIRECTED TO EMPTY THE URINAL IN THE BATHROOM; HE ASKED TO PUT ON HIS DONALD HOSE AT 0330 AND WAS SURPISED THAT IT WAS STILL THE MIDDLE OF THE NIGHT; BLE EDEMA APPEARS STABLE.
[2016-11-27 07:41] VITALS: BP 117/68
[2016-11-27 12:06] VITALS: BP 143/68
--- NOTE | 2016-11-27 13:54 | NUR ---
has been going to group. legs still edematous, cardiac notified for consult at 1215. mood is stable, full range of affect. still hyperverbal, less pressured. denied thoughts of self harm when asked.
--- NOTE | 2016-11-27 15:20 | SOCIAL WORKER PROG NOTE PSYCH ---
Social Work Progress Note Progress Note GEMA spoke on the phone with patients son, Mirza, today. Mirza expressed that he does feel his father has greatly improved since admission but still notices some signs/symptoms of hypomania. Patient still presents with elevated mood but can easily be altered to irritable and defensive. He expressed that patient has a RA, Sabrina, who comes to patients house 6 days a week and helps him with basic chores, safety, and transportation to and from appointments. This comic writer spoke with Sabrina and confirmed that she will resume services once discharged form the hospital. Patient also has VNS, Rosita, who will also resume VNS services with patient. Patient was previously seen once a day by VNS but we discussed potentially having VNS come 2x day. Patient takes many of his medications at bedtime and VNS is only able to come at the latest, 5pm. I will discuss this with patient and see if he would be opening to taking his bedtime meds earlier when VNS is able to come. Patient adamantly is refusing to attend IOP although he recognizes this is our recommendation. Patient plans to discharge home tomorrow and is unable to stay with family. This comic writer discussed this with Mirza earlier and he stated that all family members work and have busy routines during the day and are unable to take patient in temporarily. Therefore patient will return home and continue with services with Sabrina his RA and his VNS Rosita. He will resume treatment at [facility] as well. Patient is very eager to discharge home at this time, his insight and judgement into his mental health continues to appear poor as he continued to state " I am not manic and I don't know why everyone seems to be saying that." Patient has agreed to continue taking his medication and will continue in treatment with Care but refuses IOP.
[2016-11-27 16:25] VITALS: BP 125/90
[2016-11-27 19:38] VITALS: BP 148/77
--- NOTE | 2016-11-27 20:16 | CP SOUTH PROGRESS NOTE PSYCH ---
Psych (Inpt) Progress Note Progress Note Include the following elements, when applicable: Involvement in the active treatment of the patient with behavioral observations of the patient and the patient's response to the treatment. Review of the ongoing treatment process in the context of the treatment plan. Indication of how multi-disciplinary staff members are carrying out the treatment plan. Plans for future interventions and recommendations for revision of the treatment plan. Liaison with other physicians/providers. Progress Note: PSYCHIATRIST NOTE, 11/27/2016: I discussed this patient's slow and at times uneven progress to date, current mental status, treatment and discharge planning with staff team today in the daily morning ITTM and also met with him again myself in individual session. Patient spent a weekend without noted major incidents though he had the lack of judgment to be forward with an autistic mute male patient at times, trying to get the man to speak but could be redirected by staff. Patient's son Mirza called this morning to tell us that though he considered his father "much better than when he came in," still somewhat pressured and telling towards the argumentative; he was reassured that we are keeping patient another day and increasing dose of Depakote ER; serum valproic acid level today was only about 82; it had been 85 several days ago, prior to the most recent increase in dose; patient agreed to my making another increase in dose by 250mg today, to a total of 1500mg 2x/day. Patient will be set up with appointments to see Dr. Leal of [facility], his psychiatric prescriber, Dr. Turner, cadiologist and his PCP, Dr. Smiley soon after discharge which is planned for tomorrow. Patient was able to deal with spending an additional day here with relative equanimity, not pleased but not becoming overexcited, openly irritable or argumentative. He is still somewhat expansive though clearly not hypomanic or even elated/hyperirritable at this point.
--- NOTE | 2016-11-27 21:27 | NUR ---
PT IS VISIBLE ON UNIT, WATCHING TV IN LOUNGE AND SOCIALIZING WITH PEERS. COOPERATIVE AND COMPLIANT WITH STAFF. ATTENDED WRAP UP MEETING AND PARTICIPATED. NO COMPLAINTS OR SI REPORTED. PT HAS A STABLE MOOD AND FULL RANGE AFFECT.
--- NOTE | 2016-11-28 06:35 | NUR ---
PT CALMER, MORE COOPERATIVE, MOTIVATED TO STAY IN CONTROL SO HE CAN LEAVE. TEDS STOCKINGS REMOVED.
[2016-11-28 07:38] VITALS: BP 128/92
--- NOTE | 2016-11-28 09:29 | NUR ---
PT IS TENTATIVELY SCHDULED FOR D/C TO [facility] TODAY. HE IS CALM AND COOPERATIVE AND ABLE TO MAKE HIS NEEDS KNOWN IN AN APPROPRIATE MANNER. HE RESPONDS WELL TO STAFF REQUESTS AND IS COMPLIANT WITH HIS MED REGIME. PT DENIES ANY THOUGHTS OF SUICIDE OR SELF HARM. HE STATES HE HAS VISITING NURSES TO ASSIST WITH MED ADMINISTRATION AND A HOME HEALTH AIDE TO ASSIST WITH ADLS. PT IS GIVEN EDUCATION ON MANAGING HIS MOOD D/O AND ON PREVENTING SUICIDE
--- NOTE | 2016-11-28 09:36 | NUR ---
PT SEEN BY DR EMERY MECHANICAL MAINTENANCE ENGINEER.PTS SWELLING IN LEGS HAS IMPROVED AND DR EMERY STATES HE WILL SEE PT IN THE OFFICE UPON DISCHARGE. HE STATED HE WILL MAKE THE APPOINTMENT IN HIS OFFICE AND DICTATE A NOTE.
[2016-11-28] MEDS ORDERED: NICORELIEF2 MG PO (10:47)
[2016-11-28] MEDS ORDERED: QUETIAPINE FUM100 M1 PO ×2 (11:00)
[2016-11-28] MEDS ORDERED: FUROSEMIDE20 M1 PO (11:00)
--- NOTE | 2016-11-28 11:00 | SOCIAL WORKER PROG NOTE PSYCH ---
Social Work Progress Note Progress Note Patient to discharge home today. Patient denies SI/HI/AH/VH at present and reports feeling ready to return home. Patient's RA, Sabrina, will be picking patient up at 3PM and plans to spend a few hours with him when he returns home this evening. She typically comes 6 days a week and spends 3-4 hours with him doing chores and errands. Patients VNS, Rosita, from [facility] will be coming by this evening at 5PM as well. Patient refused IOP recommendation but will return to treatment at [facility]. He has appointment with Dr. Leal on @ 2:20PM. Patient also has appointment with his PCP, Dr. Smiley, on 12/01/16 @ 3:15. Lastly, patient has appointment to follow up with Cardiology, Dr. Turner , on 12/07/16 @ 12:30PM.
[2016-11-28] MEDS ORDERED: QUETIAPINE FUM200 M1 PO (11:04)
[2016-11-28] MEDS ORDERED: DIVALPROEX SOD500 M2 PO (11:46)
[2016-11-28 12:16] VITALS: BP 140/74
--- NOTE | 2016-11-28 14:01 | CP SOUTH PROGRESS NOTE PSYCH ---
Psych (Inpt) Progress Note Progress Note Include the following elements, when applicable: Involvement in the active treatment of the patient with behavioral observations of the patient and the patient's response to the treatment. Review of the ongoing treatment process in the context of the treatment plan. Indication of how multi-disciplinary staff members are carrying out the treatment plan. Plans for future interventions and recommendations for revision of the treatment plan. Liaison with other physicians/providers. Progress Note: PSYCHIATRIST NOTE (DISCHARGE), 11/28/2016: I discussed this patient's slow progress to date, current mental status, treatment and discharge plans with staff team today in the daily morning ITTM and also met with him again myself in individual session prior to discharging him to resume his ongoing fpc outpatient treatment with the [facility] clinic in [place], [place] where he is scheduled to meet with his prescribing psychiatrist , Dr. Leal, next on 11/30/2016 at 2:20pm. He also has scheduled appointments with his medical providers, his PCP Dr. Smiley, on 12/01/2016 at 3:15pm and investigative writer, Dr. Turner, on 12/05/2016 at 3:30pm. He was also going to resume services of Sabrina [facility] (6 days a week --very close to and working with Sabrina for more than four years now; she picked him up on discharge to bring him home) and have nursing visits from [facility], starting on 11/28/2016 at 5pm. Though patient remained hypomanic, irritable and often argumentative for several days into this admission, by date of discharge today he was much more affable ( closer to euthymia than elation), cooperative, and pleasant, thanking me and other staff for our patience with him, expressing appreciation for the care he received here. In fact, he had proved more patient than I might have expected during last 1-2 days of admission when he was "expecting" to go home but not completely ready to make the transition to outpatient treatment, particularly as he opposed any suggestion/recommendation that he f/u in IOP level of care. Serum valproic acid level this morning was up slightly, to 87.6mcg/ml, and continues to be well tolerated at a dose titrated up to total of 3,000mg/day; I would recommend maintaining current dose and repeating level in a few weeks to see if a valproic acid concentration of approximately 110mcg/ml has been reached ; patient's longtime outpatient treaters had found that patient "does best when his valproic acid level is about 110." I have continued low dose Ativan at HS, but patient is willing to and expects to taper that (1mg HS) away following an interval of outpatient stabilization (and sound sleep). I have called into [facility], on date of discharge, 2016: Depakote ER, 500mg: iii(3) 2x/day (3,000mg daily); #84 with no refill (mood stabilization) Seroquel, 200mg: i daily in AM iii(3) every evening (800mg/day); #84 with no refill (clarify thinking) Ativan, 1m.5-1 tab nightly at HS (0.5-1mg/night); #14 with no refill ( help sleep induction) I also called in: Lasix, 20mg: iii(3) daily in AM (60mg/day); #9 with no refill (diuretic--Dr. Smiley will re-evaluate during her visit with patient on 12/01/2016) Patient also has sufficient quantities at home to take: Synthroid, 88mcg daily in AM (thyroid supplement) Sinemet, 25/100mg tab 3x/day (treatment of parkinsonism) mysoline, 100mg 2x/day (seizure prophylaxis) midodrine, 10mg 3x/day (anti-hypotensive) Proscar, 5mg/night (prostate health) Florinef, 100mcg/day (corticosteroid therapy) Prilosec, 20mg/day (for acid reflux) Patient was also encouraged to utilize nicotine gum OTC to help reduce cigarette /tobacco cravings and given an appointment card for the next [facility] scheduled for 11/29/2016 at 4pm, facilitated by Mckenna Larios LCSW.
--- NOTE | 2016-11-28 14:55 | DISCHARGE SUMMARY REPORT-PSYCH ---
Visit Information Visit Dates/Diagnosis' Admission Date: 11/13/16 Discharge Date: 11/28/16 Reason for Admission: "I don't know why I'm here." Psy Discharge Primary Diag: Bipolar I Disorder; MRE Manic with Psychotic F. Hospital Course Significant Lab Findings: glucose = 102; BUN = 24; sodium = 141, 133, chloride = 106, 97; total protein = 6.2, albumin = 3.3; RBC = 4.10, HCT = 41.7, MCV = 101.6, mono = 14.1%, mono abs = 0.7; urine for drugs of abuse (on 11/12/2016) --positive for barbiturates (637ng /ml) and cannabis (78.40ng/ml); CESILIA = less than 10.0; valproic acid levels = 66.9, 58.9, 84.7, 85.9, 82.6 and 87.6 (for complete details of all normal range laboratory data from this admission, see the electronic medical record) Course Complications: patient was evaluated for bilateral lower extremity edema by Eulogio Mccord M.D., who ordered treatment with Lasix; dosage was titrated up to 60mg/day by hospitalist staff physicians with recommendation for f/u after discharge by patient's service coordinator elderly facility, Dr. Turner Consultations: patient was seen for an admission medical H&P and followed medically throughout this admission by Eulogio Mccord M.D., and the hospitalist staff/[facility] medical attending physicians Allergies: Coded Allergies: lithium (UNKNOWN 10/16/15) haloperidol (From HALDOL) (NAUSEA 10/16/15) Hospital Course/TX Response: (see also all admission assessments, daily M.DIngris/SEPTIC PUMP TRUCK DRIVER and PLASTIC MIXER progress notes, discharge note of 11/28/2016, in the electronic medical record) Initially, dose of Seroquel at HS was increased and Depakote therapy continued ; valproic acid level to days BANK MANAGER had been 66.9mcg/ml. Patient had been clearly hypomanic, pressured, at times confrontative with staff and other patients at first but generally appeared to be more settled. Valproic acid level on 2016 was 84.7 and Depakote ER well tolerated at increased dose of 2,500mg/day; preadmission dose had been listed as only 1,500mg daily but during 2014 [facility] admission a dose of 2,500mg/day was needed to provide a therapeutic serum valproic acid level. Patient was treated with maximum recommended dose of Seroquel (800mg/day) with low dose Ativan as a PRN but the latter was discontinued as we did not wish to possibly further disinhibit patient/increase tendency to impulsivity. Instead, a low dose PRN of Zyprexa was substituted temporarily with good effect. A family meeting was held on 11/23/2016, attended by patient, his son and daughter, his desk assistant for the past 4+ years Elma, Mr. Chopra and myself. Patient's son noted that his father "seemed to do best when his valproic acid level was about 110" and patient agreed to increase dose of Depakote ER by 250mg/day with goal of reaching that level (and was eventually titrated up to 3,000mg/day, well tolerated and appeared to be beneficial). His adult children felt their father was clearly improving, much improved over his behavior around the time of admission. Splitting the dose of Seroquel between morning a HS appeared to be optimal. use of Seroquel XR might be substituted in future, if indicated. Though patient had remained hypomanic, irritable and often argumentative for several days into this admission, by date of discharge he was much more pleasant, affable (closer to euthymia than elation ), cooperative and expressing his sincere gratitude to staff for the care (and patience) he had received on [facility]. Discharge HBIPS - Tobacco Use Treatment Offered Post DC Medications Offered: Refused Tob Medication Tx (nicotine patch/gum refused) Post DC Tobacco Treatment Plan: [facility] Program Appt Date: 11/29/16 - EtOH/Drug Use D/O Treatment Offered Post DC Medications Offered: Ref Med EtOH/Drug Use D/O Post DC EtOH/SubAbuse TX Plan: Refused Post DC Tx Pgm (encouraged to attend local AA) Metabolic Screening - Screen if on a Neuroleptic Medication - Metabolic screening should include: - Blood Pressure, BMI, Glucose or Hgb A1c, & a - Lipid profile from within the past 365 days. Metabolic Screening () Not Applicable, patient not on a neuroleptic. OR ([x]) Patient on a neuroleptic(s) . Enter below results for Glucose or Hemoglobin A1C, and lipid panel if obtained during the last 365 days. BMI: Blood Pressure: 140/74 Laboratory Results (If applicable): [x] glucose = 102 cholesterol = 159 (all drawn on 09/28/2016) triglycerides = 169 HDL = 40 LDL = 86 Discharge Instructions General Discharge Information Discharge Medications: Discharge Medications (dose, route, frequency, indications): (see also discharge note of 11/28/2018 in the electronic medical record) I have called into [facility], on date of discharge, 2016: Depakote ER, 500mg: iii(3) 2x/day (3,000mg daily); #84 with no refill (mood stabilization) Seroquel, 200mg: i daily in AM iii(3) every evening (800mg/day); #84 with no refill (clarify thinking) Ativan, 1m.5-1 tab nightly at HS (0.5-1mg/night); #14 with no refill ( help sleep induction) I also called in: Lasix, 20mg: iii(3) daily in AM (60mg/day); #9 with no refill (diuretic--Dr. Smiley will re-evaluate during her visit with patient on 12/01/2016) Patient also has sufficient quantities at home to take: Synthroid, 88mcg daily in AM (thyroid supplement) Sinemet, 25/100mg tab 3x/day (treatment of parkinsonism) mysoline, 100mg 2x/day (seizure prophylaxis) midodrine, 10mg 3x/day (anti-hypotensive) Proscar, 5mg/night (prostate health) Florinef, 100mcg/day (corticosteroid therapy) Prilosec, 20mg/day (for acid reflux) Patient was also encouraged to utilize nicotine gum OTC to help reduce cigarette /tobacco cravings and given an appointment card for the next [facility] scheduled for 11/29/2016 at 4pm, facilitated by Mckenna Larios LCSW. Multiple Neuroleptics: ([X]) Not Applicable OR Document below three failed attempts at monotherapy, or a plan to taper to monotherapy, or augmentation of Clozapine. () Patient's Diet: Heart Healthy Patient's Activity: without restrictions DC Disposition: to home Recommendations: I would advise taper and discontinuation of current low dose Ativan (daily dose lowered during this admission). I would further recommend that following an interval of outpatient stabilization current high dose Seroquel be gradually tapered down. Patient repeatedly refused to consider making a transition to outpatient treatment through [facility] but that option should be offered once again if he has more difficulty readjusting to living in the community with the supports currently in place. Referred To: Patient was referred directly back to resume his ongoing fci outpatient treatment with [facility], where he will meet next with his treating psychiatrist, Bee Leal M.D., on 11/30/2016 at 2:20pm; he has scheduled f/u appointments with his PCP, Dr. Smiley, on 12/01/2016 at 3:15pm and service coordinator elderly facility, Anil Turner M.D., on 12/05/2016 at 3:30pm. He will also resume visits at home from Sabrina Isabel, his Parts Remover (6x/week) from [facility] (who drove him home upon discharge) and visiting nurses from [facility] will come again beginning on the afternoon of discharge, 11/28/2016, at 5pm. Patient was also given an appointment card for the next scheduled [facility] on 11/29/2016 at 4pm, facilitated by Mckenna Larios LCSW. Copies To: RUPERT CARDOZA,ANIL Dietrich; TATA CARDOZA,[facility]; SRAVAN FERNANDEZ,JOVANNA; DARYL Sam,BEE
--- NOTE | 2016-11-29 14:20 | Cons- Cardiology ---
General Information and HPI Consulting Request Date of Consult: 11/28/16 Requested By: BEKAH CARDOZA,LASHELL Watson Reason for Consult: Lower extremity edema. Source of Information: patient, old records Exam Limitations: poor historian History of Present Illness: Mr. Israel Chambers is a 66-year-old male with a long-standing history of tobacco use, dyslipidemia, seizure disorder, hyponatremia secondary to SIADH, hypothyroidism, deep venous thrombosis previously on Warfarin anticoagulation, Parkinson's disease, orthostatic hypotension, and bipolar disorder who presented to the ED on 11/13/2016 after having an argument with his manager fast food with verbal threats and who admitted to progressive bilateral lower extremity edema that improved following the administration of Furosemide. The patient states that the bilateral lower extremity edema improved significantly after his Furosemide was increased from 40 mg daily to 60 mg daily last week. He has remained on Furosemide 60 mg daily. The patient denies any recent chest discomfort, palpitations, shortness of breath, orthopnea, paroxysmal nocturnal dyspnea, dry cough, syncope, near syncope, lightheadedness, dizziness, or claudication. Allergies/Medications Allergies: Coded Allergies: lithium (UNKNOWN 10/16/15) haloperidol (From HALDOL) (NAUSEA 10/16/15) Home Med List: Carbidopa/Levodopa (Carbidopa-Levodopa 25-100 Tab) 25 MG-100 MG TABLET 1 TAB PO TID PARKINSONS (Reported) Divalproex Sodium 500 MG TABLET.DR 1,500 MG PO 0800,1999 mood stabilization Finasteride 5 MG TAB 5 MG PO BEDTIME BPH (Reported) Fludrocortisone Acetate 0.1 MG TABLET 1 TAB PO DAILY BP (Reported) Furosemide 20 MG TABLET 60 MG PO DAILY diuretic Levothyroxine Sodium (Levothyroxine) 0.088 MG TAB 0.088 MG PO DAILY AC THYROID PROBLEMS (Reported) Lorazepam (Ativan) 1 MG TABLET 1 MG PO SLEEP (Reported) Midodrine HCl 10 MG TABLET 1 TAB PO TID BP (Reported) Nicotine (Nicorelief) 2 MG GUM 2 MG PO Q2 HRS NEEDED PRN tobacco cravings Pantoprazole Sodium (Protonix) 20 MG TAB 20 MG PO DAILY PRN REFLUX (Reported) Primidone (Mysoline) 50 MG TABLET 100 MG PO BID UNKNOWN (Reported) Quetiapine Fumarate 100 MG TABLET 200 MG PO 1000 clarify thinking Quetiapine Fumarate 200 MG TABLET 600 MG PO BEDTIME clarify thinking Rosuvastatin Calcium (Crestor) 20 MG TAB 20 MG PO BEDTIME HIGH CHOLESTROL ( Reported) Review of Systems Review of Systems: A 14 point system review was obtained and was noncontributory, other than as above, except for the fact that he wears glasses. Past History Travel History Traveled to [place] past 21 day No Medical History Neurological: meningitis (lyme), Parkinson's disease, seizure EENT: NONE Cardiovascular: hyperlipidemia Respiratory: NONE Gastrointestinal: NONE Renal: benign prost hyperplasia Musculoskeletal: osteoarthritis Psychiatric: bipolar disease Endocrine: diabetes, hypothyroidism Blood Disorders: DVT Cancer(s): NONE ORDER TRACER/Reproductive: NONE Surgical History Surgical History: cholecystectomy, hip replacement (Bilateral hip replacement) Family History Relations & Conditions If Any: No Known Family History. Psychosocial History Services at Home: Home Health Aide Primary Language: Uzbek ETOH Use: occasional use Employment History Employment: Retired Profession/Employer Worked for [employer] until 64 y.o. Exam & Diagnostic Data Vital Signs and I&O BP 140/74 P 88 (reg) R 16 T 96.6 RA 02 96% Physical Exam: Well-developed, well-nourished male in no acute distress. Vital signs: See above. HEENT: Normocephalic, atraumatic, EOMI, moist mucous membranes. Neck: No JVD, no bruits. Lungs: Clear to auscultation. Heart: S1, S2 with no murmur, gallop,or rub appreciated. PMI fifth ICS at MCL. Abdomen: Soft, nontender, positive bowel sounds. Extremities: No edema. Labs/Christopher Results: Laboratory Tests 11/28 0645 Chemistry Sodium (137 - 145 mmol/L) 133 L Potassium (3.5 - 5.1 mmol/L) 4.9 Chloride (98 - 107 mmol/L) 97 L Carbon Dioxide (22 - 30 mmol/L) 29 Anion Gap (5 - 16) 8 BUN (9 - 20 mg/dL) 15 Creatinine (0.7 - 1.2 mg/dL) 0.8 Estimated GFR (>60 ml/min) > 60 BUN/Creatinine Ratio (7 - 25 %) 18.8 Total Bilirubin (0.2 - 1.3 mg/dL) 0.3 Direct Bilirubin (< 0.4 mg/dL) 0.2 AST (17 - 59 U/L) 20 ALT (21 - 72 U/L) 28 Alkaline Phosphatase (< 127 U/L) 56 Total Protein (6.3 - 8.2 g/dL) 6.2 L Albumin (3.5 - 5.0 g/dL) 3.3 L Toxicology Valproic Acid (50 - 120 ug/mL) 87.6 Diagnostic Data Other Results Echocardiogram (11/22/2016): Small left ventricular cavity. Mild concentric left ventricular hypertrophy. Normal left ventricular ejection fraction visually estimated at > 65%. Abnormal relaxation filling pattern of the left ventricle for age (stage 1 diastolic dysfunction). Right ventricle at upper limits of normal. Normal right atrial size. Left atrial size at the upper limits of normal. Mild mitral regurgitation. Trace tricuspid regurgitation. No evidence of pulmonary hypertension. Bilateral lower extremity ultrasound (11/21/2016): Normal triplex scan without evidence of deep venous thrombosis involving the bilateral lower extremities. Fluid collection measuring 4.2 x 1.3 x 2.4 cm in size in the left popliteal fossa, consistent with a Hall's cyst. Left hip x-ray (11/14/2016): Status post left total hip replacement. No acute change. Assessment/Plan Assessment/Plan Bilateral lower extremity edema that has improved following diuretic therapy in this 66-year-old male with a history of tobacco use, HLD, seizures, hyponatremia from SIADH, hypothyroidism, DVT, Parkinson's disease, orthostatic hypotension, and bipolar disorder who presented to the ED on 11/12/2016 after an argument with his manager fast food and verbal threats who admitted to progressive bilateral lower extremity edema that improved following an increase in his Furosemide from 40 mg to 60 mg daily a week or so ago, according to the patient. He denied any recent chest discomfort, palpitations, shortness of breath, orthopnea, paroxysmal nocturnal dyspnea, dry cough, syncope, near syncope, lightheadedness, dizziness, or claudication. He also denied any recent dietary indiscretion. His echocardiogram was reassuring in that it revealed preserved left ventricular systolic function, mild stage I diastolic dysfunction, no significant valvular abnormalities, normal right heart size, and no evidence of pulmonary hypertension. At this juncture, I would recommend maintaining him on the Furosemide 60 mg daily, using support hose, and having him elevate his legs as much as possible. We will plan to see him in the office for outpatient follow-up in the near future and further recommendations will follow. Consult Acknowledgment - Thank you for your consult request.
== END 2016-11-28 16:15 | DRG 885 ==
LOC: ERH 20:15 → CP SOUTH 11-13 11:11 → ERHI 11-13 11:11 → EDBEDREQ 11-13 13:47 → CP SOUTH 11-13 14:16
PROVIDERS: Pediatrics; ADMIT Psychiatry & Neurology Addiction Medicine
DX: F31.2 Bipolar disorder, current episode manic severe with psychotic features (principal)
CPT/HCPCS: 36415; 73502-LT; 80307; 82436; 93306; 93970; G0480